=== PATIENT | male | born 1950 | race Caucasian/White ===

== ENCOUNTER 2020-01-16 00:05 | Inpatient (IN) | payer MEDICARE, OTHER ==
[2020-01-16] VITALS (9 sets, daily range): BP systolic 146–184; BP diastolic 63–74
[~2020-01-16] VITALS: Ht 177.8 cm; Wt 104.3 kg
[2020-01-16] MEDS ORDERED: TEMAZEPAM 15 MG CAPSULE PO PRN (00:30)
[2020-01-16] MEDS ORDERED: HYDROCODONE/APAP 5/325MG TABLET PO PRN (00:30)
[2020-01-16] MEDS ORDERED: ACETAMINOPHEN 325 MG TABLET PO PRN (00:30)
[2020-01-16] MEDS ORDERED: Z GUARD REMEDY 2 OZ OINT TP PRN (00:30)
[2020-01-16] MEDS ORDERED: MAG HYDROX/AL HYDROX/SIMETH 30 ML UDC PO PRN (00:30)
[2020-01-16] MEDS ORDERED: MECLIZINE HCL 12.5 MG TABLET PO PRN (00:30)
[2020-01-16] MEDS ORDERED: ONDANSETRON HCL/PF 4 MG/2 ML VIAL IVP PRN (00:30)
[2020-01-16] MEDS ORDERED: MAGNESIUM HYDROXIDE 30 ML UDC PO PRN (00:30)
[2020-01-16] MEDS ORDERED: APIX5TAB PO (00:51)
[2020-01-16] MEDS ORDERED: HYDR100T27 PO (00:51)
[2020-01-16] MEDS ORDERED: DULA0.75 SQ (00:51)
[2020-01-16] MEDS ORDERED: NIFE-57 PO (00:51)
[2020-01-16] MEDS ORDERED: ISOS30TA6 PO (00:51)
[2020-01-16] MEDS ORDERED: LABE200T5 PO (00:51)
--- NOTE | 2020-01-16 01:18 | NUR ---
ADMISSION NOTES: RECEIVED REPORT FROM GEREMIAS FROM [facility] AT 2200. PT BROUGHT TO THE UNIT VIA GURNEY ACCOMPANIED BY EMT, ARRIVED AT 0012AM. PT TRANSFERRED TO BED, TELEMONITORING APPLIED. PT A/O X3 ON RA RESPIRATIONS EVEN AND UNLABORED. IV ACCESS PATENT AND FLUSHING WELL, ON HL. SKIN ASSESSMENT PERFORMED. ORIENTED PT TO UNIT POLICY AND HOURLY ROUNDING, USE OF CALL LIGHT SYSTEM. INVENTORY OF BELONGING PERFORMED BY MAHESH MCKEON. CLARIFIED WITH PT REGARDING ALL HOME MEDS, ENTERED IN COMPUTER, EPIC HOSPITALIST CURRENTLY IN THE UNIT ALREADY PLACED ALL ORDERS. INFORMED MD THAT HOME MEDS WILL BE ENTERED, PER MD TO JUST NOTIFY HIM. PT PROVIDED WITH SNACKS/SAND WHICH AND CRANBERRY JUICE. ALL PAPER WORKS FROM PLACED IN CHART. MRSA SWAB PERFORMED. NSR HR 74. PT DENIES ANY PALPITATION OR DIZZINESS. VS TAKEN AND RECORDED. LEFT UPPER ARM AVF IN PLACED, PRECAUTION POSTED BY THE WALL. SAFETY PRECAUTIONS FOR FALL INITIATED, Call light in reach, will continue monitoring pt.
--- NOTE | 2020-01-16 01:23 | NUR ---
rn notes: notified epic md about all home meds already saved in computer.
[2020-01-16] MEDS ORDERED: DEXTROSE 50%-WATER 50 ML DISP.SYRIN IV PRN (02:30)
[2020-01-16] MEDS: BLOOD SUGAR DIAGNOSTIC 1 EACH STRIP IN SCH ×4 (06:18→21:11)
[2020-01-16] MEDS: INSULIN REGULAR, HUMAN 100 UNIT/ML 3 ML VIAL SQ PRN ×4 (06:25→21:11)
--- NOTE | 2020-01-16 07:02 | NUR ---
end of shift report: pt remains on tele monitoring, sinus rhythm hr 70's. denies any chest pain or palpitation, denies any dizziness or light headedness. iv access remains patent and flushing well, on hl, no s/s of iv infiltration noted. plan of care: cardio consult in am. safety precautions for fall remains engaged, call light in reach, will endorse to day rn for violeta.
--- NOTE | 2020-01-16 07:38 | NUR ---
ROLL UP MACHINE OPERATOR OPENING NOTES BEDSIDE ENDORSEMENT DONE. PATIENT IS IN BED, AWAKE AND VERBALLY RESPONSIVE. A/O X4, ABLE TO MAKE NEEDS KNOWN. BREATHING EVEN AND UNLABORED, TOLERATING ROOM AIR. ON TELE MONITORING, READING OF SR W/ PAC, HR AT MID 70'S, NO CARDIAC DISTRESS. IV LINE ON RAC #20 INTACT AND PATENT. NICK AV SHUNT, W/ DRESSING C/D/I. SAFETY PRECAUTIONS IN PLACE: BED LOCKED AND ON LOWEST POSITION, SR UP X2, CALL LIGHT W/IN REACH. WILL MONITOR ACCORDINGLY. Addendum: 01/16/20 at 0746 by ARTHUR PEREZ RN NO PAC NOTED ON TELE MONITORING.
[2020-01-16] MEDS: APIXABAN 5 MG TABLET PO SCH ×2 (08:14→17:15)
[2020-01-16] MEDS: PANTOPRAZOLE 40 MG TABLET.DR PO SCH (08:14)
[2020-01-16] MEDS: LABETALOL HCL (100MG) 100 MG TABLET PO SCH ×2 (08:15→21:01)
[2020-01-16] MEDS: hydrALAZINE HCL 50 MG TABLET PO SCH ×3 (08:15→17:13)
[2020-01-16] MEDS: ISOSORBIDE DINITRATE (20MG) 20 MG TABLET PO SCH ×3 (08:16→17:13)
[2020-01-16] MEDS: NIFEdipine XL (30MG) 30 MG TAB PO SCH ×2 (08:16→17:11)
--- NOTE | 2020-01-16 09:59 | NUR ---
RN NOTES PATIENT WAS SEEN BY DR. BUENROSTRO FOR CARDIO CONSULT, W/ ORDER FOR CT ANGIO HEART W/ 3D IMAGE. CONSENT FORM SIGNED BY PATIENT AND WITNESSED BY ME. RADIOLOGY MADE AWARE THAT PATIENT HAD TAKEN HIS BP MEDS AND ELIQUIS IN AM.
[2020-01-16 10:22] LABS: BASOPHILS # (AUTO) 0.1 /CMM (0.0-0.2); BASOPHILS % (AUTO) 1.3 % (0.0-2.0); EOSINOPHILS % (AUTO) 9.8 % (0.0-6.0); HEMATOCRIT 33 % (39-51); HEMOGLOBIN 10.9 g/dL (13.5-17.5); LYMPHOCYTES # (AUTO) 0.7 /CMM (0.8-4.8); LYMPHOCYTES % (AUTO) 8.2 % (20.0-44.0); MEAN CORPUSCULAR HGB CONC 33 g/dl (31.0-36.0); MEAN CORPUSCULAR VOLUME 90 fL (80-96); MONOCYTES # (AUTO) 0.7 /CMM (0.1-1.30); MONOCYTES % (AUTO) 8.8 % (2.0-12.0); NEUTROPHILS # (AUTO) 6.1 /CMM (1.8-8.9); NEUTROPHILS % (AUTO) 71.9 % (43.0-81.0); PLATELET COUNT (AUTO) 205 /CMM (150-450); RED BLOOD CELL COUNT(AUTO) 3.65 MIL/uL (4.5-6.0); WHITE BLOOD COUNT (AUTO) 8.4 K/uL (4.3-11.0)
[2020-01-16 10:49] LABS: BILIRUBIN,TOTAL 0.4 mg/dL (0.2-1.0); CALCIUM, SERUM 8.3 mg/dL (8.5-10.1); CREATININE 6.7 mg/dL (0.6-1.3); MAGNESIUM 1.9 mg/dL (1.8-2.4); PHOSPHORUS 4.7 mg/dL (2.5-4.9); POTASSIUM 3.8 mmol/L (3.5-5.1); TOTAL PROTEIN, SERUM 7.3 g/dL (6.4-8.2)
[2020-01-16] MEDS ORDERED: NITROGLYCERIN 0.4 MG/TAB BOTTLE SL ONE (12:30)
[2020-01-16] MEDS ORDERED: IV NS 0.9% 500 ML IV PRN (12:30)
--- NOTE | 2020-01-16 12:38 | NUR ---
RN ORTIZ MACEDO FROM LEASING MACHINE TENDER CALLED AND WAS INFORMED ABOUT PATIENT'S CREATININE LEVEL OF 6.[address] BUENROSTRO IS OKAY TO CONTINUE WITH THE CTA PROCEDURE. SPOKE W/ DR. BUENROSTRO AND INFORMED HIM OF CONCERN; OKAY TO CONTINUE PER DR. BUENROSTRO. CALLED [facility] BACK AND INFORMED OF DR. BUENROSTRO'S RESPONSE.
[2020-01-16] MEDS ORDERED: METOPROLOL TARTRATE INJ 5 MG/5 ML AMPUL ONE ×2 (12:42→13:38)
[2020-01-16] MEDS ORDERED: NITROGLYCERIN 0.4 MG/TAB BOTTLE ONE (12:42)
--- NOTE | 2020-01-16 13:02 | NUR ---
RN NOTES PATIENT WAS PICKED UP FOR CTA PROCEDURE VIA WHEELCHAIR ACCOMPANIED BY HOUSE PAINTER.
[2020-01-16] MEDS ORDERED: IOHEXOL-350 100 ML VIAL IV ONE (13:04)
[2020-01-16] MEDS ORDERED: IV NS 0.9% 250 ML IV ONE (13:04)
[2020-01-16] MEDS: METOPROLOL TARTRATE INJ 5 MG/5 ML AMPUL IVP PRN ×10 (13:20→14:05)
--- NOTE | 2020-01-16 14:08 | NUR ---
CTA Heart with 3D imaging completed, given a total of 50 MG IVP Metoprolol and 0.4 mg Sl NTG; pt tolerated procedure, VSS; denies pain or SOB ; report given to Ronn JACOBSON; sent back to floor via wheelchair
--- NOTE | 2020-01-16 14:29 | NUR ---
RN NOTES PATIENT RETURNED FROM CTA PROCEDURE VIA WHEELCHAIR, ACCOMPANIED BY MACHINE CLOTH TRIMMER.
--- NOTE | 2020-01-16 18:53 | NUR ---
HOSPITAL SUPERVISOR CLOSING NOTES PATIENT IS IN BED, AWAKE AND VERBALLY RESPONSIVE. A/O X4, ABLE TO MAKE NEEDS KNOWN. BREATHING EVEN AND UNLABORED, TOLERATING ROOM AIR. ON TELE MONITORING, READING OF SR, WITH HR AT MID 60'S TO 70'S, NO CARDIAC DISTRESS. IV LINE ON RAC #20 INTACT AND PATENT. NICK AV SHUNT, W/ DRESSING C/D/I. S/P CTA PROCEDURE TODAY. SAFETY PRECAUTIONS MAINTAINED: BED LOCKED AND ON LOWEST POSITION, SR UP X2, CALL LIGHT W/IN REACH. WILL ENDORSE TO [place] SUPERVISOR RN FOR JASON.
--- NOTE | 2020-01-16 19:31 | NUR ---
PIE TOPPER OPENING NOTES PATIENT RECEIVED RESTING IN BED COMFORTABLY; A/OX4, BREATHING EVEN AND UNLABORED; TOLERATING ROOM AIR; NO SOB NOTED; NO DISTRESS NOTED; CURRENTLY RECEIVING HD WITH HD NURSE AT BEDSIDE; TELE MONITOR READS SR 60 - 70S; R FA # 20 PRESENT; NICK AV SHUNT PRESENT; SAFETY PRECAUTIONS IMPLEMENTED; BED LOCKED IN LOW POSITION; SIDE RAILSX2; CALL LIGHT WITHIN REACH; WILL CONT TO MONITOR
[2020-01-17] VITALS (7 sets, daily range): BP systolic 114–162; BP diastolic 54–68
[2020-01-17] MEDS: BLOOD SUGAR DIAGNOSTIC 1 EACH STRIP IN SCH ×3 (06:30→16:48)
--- NOTE | 2020-01-17 06:33 | NUR ---
PROCESS ARCHITECT CLOSING NOTES PATIENT RESTING IN BED COMFORTABLY; A/OX4, BREATHING EVEN AND UNLABORED; NO SOB NOTED; NO DISTRESS NOTED; PATIENT ABLE TO MAKE NEEDS KNOWN; TELE MONITOR READS SR; NICK AV SHUNT PRESENT; SIMÓN #20 INTACT AND PATNET; ALL NEEDS RENDERED; SAFETY PRECAUTIONS IMPLEMENTED; BED LOCKED IN LOW POSITION; SIDE RAILSX2; CALL LIGHT WITHIN REACH; WILL ENDORSE JASON TO ONCOMING SHIFT
[2020-01-17 06:42] LABS: BASOPHILS # (AUTO) 0.1 /CMM (0.0-0.2); EOSINOPHILS % (AUTO) 8.6 % (0.0-6.0); HEMATOCRIT 34 % (39-51); HEMOGLOBIN 11.2 g/dL (13.5-17.5); LYMPHOCYTES # (AUTO) 0.8 /CMM (0.8-4.8); LYMPHOCYTES % (AUTO) 8.1 % (20.0-44.0); MEAN CORPUSCULAR HGB CONC 34 g/dl (31.0-36.0); MEAN CORPUSCULAR VOLUME 90 fL (80-96); MONOCYTES # (AUTO) 0.8 /CMM (0.1-1.30); MONOCYTES % (AUTO) 8.7 % (2.0-12.0); NEUTROPHILS # (AUTO) 6.9 /CMM (1.8-8.9); NEUTROPHILS % (AUTO) 73.6 % (43.0-81.0); PLATELET COUNT (AUTO) 200 /CMM (150-450); RED BLOOD CELL COUNT(AUTO) 3.73 MIL/uL (4.5-6.0); WHITE BLOOD COUNT (AUTO) 9.4 K/uL (4.3-11.0)
[2020-01-17 07:08] LABS: CHOLESTEROL 133 mg/dL (<200); HDL CHOLESTEROL 48 mg/dL (40-60); LDL 72 mg/dL (0-99); THYROID STIMULATING HORMONE 2.199 uIU/mL (0.358-3.74); TRIGLYCERIDES 94 mg/dL (30-150)
[2020-01-17 07:09] LABS: ALANINE AMINOTRANSFERASE 10 U/L (12-78); ALBUMIN 3.2 g/dL (3.4-5.0); ALKALINE PHOSPHATASE 142 U/L (46-116); ASPARTATE AMINOTRANSFERASE 5 U/L (15-37); BILIRUBIN,TOTAL 0.6 mg/dL (0.2-1.0); CALCIUM, SERUM 8.7 mg/dL (8.5-10.1); CARBON DIOXIDE 28 mmol/L (21-32); CHLORIDE 97 mmol/L (98-107); CREATININE 5.9 mg/dL (0.6-1.3); GLUCOSE 145 mg/dL (74-106); PHOSPHORUS 4.4 mg/dL (2.5-4.9); SODIUM SERUM 134 mmol/L (136-145); TOTAL PROTEIN, SERUM 7.7 g/dL (6.4-8.2); UREA NITROGEN, BLOOD 22 mg/dL (7-18)
--- NOTE | 2020-01-17 07:30 | NUR ---
PARENTING SKILLS INSTRUCTOR NOTES RECEIVED PT ON BED, AAOX4, ABLE TO MAKE NEEDS KNOWN. RESPIRATION EVEN AND UNLABORED WITH NO ACUTE RESPIRATORY DISTRESS, ON RA. LAST HD 01/15, ABLE TO PEE PER PT BUT LITTLE. DENIES PAIN AND DISCOMFORT. SKIN WARM TO TOUCH AND DRY. IV SITE AT RIGHT AC #20, PATENT IN FLUSHING. TELE MONITOR SHOWS SR 70 WITH EPISODES OF PAC. CALL LIGHT WITHIN REACH, BED IN LOW LOCKED POSITION, SR X2 UP FOR SAFETY. WILL CONT TO MONITOR CARE.
[2020-01-17] MEDS: PANTOPRAZOLE 40 MG TABLET.DR PO SCH (07:44)
--- NOTE | 2020-01-17 08:33 | NUR ---
DESK LIEUTENANT NOTES BP CHECKED 125/59 AT RIGHT UPPER ARM, HR 69.
[2020-01-17] MEDS: LABETALOL HCL (100MG) 100 MG TABLET PO SCH (08:34)
[2020-01-17] MEDS: ISOSORBIDE DINITRATE (20MG) 20 MG TABLET PO SCH ×3 (08:34→16:38)
[2020-01-17] MEDS: NIFEdipine XL (30MG) 30 MG TAB PO SCH ×2 (08:34→16:39)
[2020-01-17] MEDS: hydrALAZINE HCL 50 MG TABLET PO SCH ×3 (08:34→16:40)
[2020-01-17] MEDS: APIXABAN 5 MG TABLET PO SCH ×2 (08:35→16:41)
[2020-01-17] MEDS: INSULIN REGULAR, HUMAN 100 UNIT/ML 3 ML VIAL SQ PRN ×2 (12:12→16:49)
--- NOTE | 2020-01-17 18:58 | NUR ---
REHABILITATION CASE COORDINATORSTATIONARY ENGINEER NOTES PT AAOX4, ABLE TO MAKE NEEDS KNOWN. DC TO HOME IN MEDICAL CONDITION. EXIT CARE PROVIDED, UNDERSTOOD WELL. PT WITH NO PRESENCE OF ACUTE RESPIRATORY DISTRESS, TOLERATING RA WITH NO SOB. BM TODAY. DIALYSIS DONE TODAY WITH 1500 ML OUT. TELE SHOWS SINUS RHYTHM ALL DAY. PT DENIES LIGHTHEADEDNESS, AND PALPITATION. ALL CONCERNS ATTENDED. PT DC TO HOME SAFELY IN STABLE CONDITION
== END 2020-01-17 19:00 | disposition home or self-care (01) | DRG 308 ==
LOC: TELE 00:05 → MED 01-17 09:25
PROVIDERS: ATTEND Nurse Practitioner Acute Care
PROC: 5A1D70Z Performance of Urinary Filtration, Intermittent, Less than 6 Hours Per Day (ICD-10-PCS; principal; 2020-01-17)
DX: I48.91 Unspecified atrial fibrillation (principal); N18.6 End stage renal disease; I12.0 Hypertensive chronic kidney disease with stage 5 chronic kidney disease or end stage renal disease; I25.10 Atherosclerotic heart disease of native coronary artery without angina pectoris; Z95.5 Presence of coronary angioplasty implant and graft; Z99.2 Dependence on renal dialysis; E78.5 Hyperlipidemia, unspecified; E11.22 Type 2 diabetes mellitus with diabetic chronic kidney disease; N25.0 Renal osteodystrophy; D64.9 Anemia, unspecified
CPT/HCPCS: 36415; 71045-TC; 75574; 80053-TC; 80061-TC; 82962-TC; 83735-TC; 84100-TC; 84443-TC; 84484-TC; 85025-TC; 87081-TC; 90935-TC; 93307-TC; 97116-TC; 97530-TC; A6403; G0378; J1815; J3490; J7050; Q9967

== ENCOUNTER 2020-05-27 19:03 | Inpatient (IN) | payer MEDICARE, OTHER ==
[~2020-05-27] VITALS: Ht 177.8 cm; Wt 108.9 kg
[~2020-05-27 19:03] MED LIST: APIX5TAB PO; DULA0.75 SQ; HYDR100T27 PO; ISOS30TA86 PO; LABE200T5 PO; NIFE-57 PO
--- NOTE | 2020-05-27 19:10 | NUR ---
pt bibself c/o worsening sob x1 day. Pt aaox4. Pt breathing evenly and unlabored. Pt states that he missed dialysis today because he needed to get a tooth extracted, but was unable to do so. Pt has dialysis TThS. Pt has dialysis access on his left arm. SKin is warm, dry, and intact. Pt has 20g iv in rt hand. Blood obtained and covid swab sent to lab. Pt attached to court recording monitor and pox. [place] given and call light within reach.
--- NOTE | 2020-05-27 19:10 | NUR ---
Note undone in EDM - 05/27/20 at 1958 by SCOTTY pt bibself c/o worsening sob x1 day. Pt aaox4. Pt breathing evenly and unlabored. Pt states that he missed dialysis today because he needed to get a tooth extracted, but was unable to do so. Pt has dialysis TThS. Pt has dialysis access on his left arm. SKin is warm, dry, and intact. Pt has 20g iv in rt hand. Blood obtained and covid swab sent to lab. Pt attached to front desk monitor. [place] given and call light within reach.
--- NOTE | 2020-05-27 19:46 | NUR ---
ALFREDA CROWLEY TALKING TO PATTY SANCHES DNP REGARDING PT ADMISSION.
[2020-05-27 19:55] LABS: BASOPHILS # (AUTO) 0.1 /CMM (0.0-0.2); BASOPHILS % (AUTO) 0.9 % (0.0-2.0); EOSINOPHILS % (AUTO) 4.1 % (0.0-6.0); HEMATOCRIT 27 % (39-51); HEMOGLOBIN 8.9 g/dL (13.5-17.5); LYMPHOCYTES # (AUTO) 0.6 /CMM (0.8-4.8); LYMPHOCYTES % (AUTO) 6.7 % (20.0-44.0); MEAN CORPUSCULAR HGB CONC 33 g/dl (31.0-36.0); MEAN CORPUSCULAR VOLUME 90 fL (80-96); MONOCYTES # (AUTO) 0.5 /CMM (0.1-1.30); MONOCYTES % (AUTO) 5.8 % (2.0-12.0); NEUTROPHILS # (AUTO) 7.8 /CMM (1.8-8.9); NEUTROPHILS % (AUTO) 82.5 % (43.0-81.0); PLATELET COUNT (AUTO) 195 /CMM (150-450); RED BLOOD CELL COUNT(AUTO) 2.98 MIL/uL (4.5-6.0); WHITE BLOOD COUNT (AUTO) 9.4 K/uL (4.3-11.0)
[2020-05-27 20:15] LABS: ALANINE AMINOTRANSFERASE 19 U/L (12-78); ALBUMIN 3.5 g/dL (3.4-5.0); ALKALINE PHOSPHATASE 117 U/L (46-116); ASPARTATE AMINOTRANSFERASE 11 U/L (15-37); B-TYPE NATRIURETIC PEPTIDE 33567 PG/ML (0-125); BILIRUBIN,DIRECT 0.1 mg/dL (0.0-0.2); BILIRUBIN,TOTAL 0.3 mg/dL (0.2-1.0); CALCIUM, SERUM 9.4 mg/dL (8.5-10.1); CARBON DIOXIDE 28 mmol/L (21-32); CHLORIDE 98 mmol/L (98-107); GLUCOSE 154 mg/dL (74-106); POTASSIUM 5.4 mmol/L (3.5-5.1); SODIUM SERUM 136 mmol/L (136-145); TOTAL PROTEIN, SERUM 7.6 g/dL (6.4-8.2); UREA NITROGEN, BLOOD 55 mg/dL (7-18)
[2020-05-27 20:16] LABS: CREATININE 8.7 mg/dL (0.6-1.3)
--- NOTE | 2020-05-27 21:35 | NUR ---
TELE [phone]
--- NOTE | 2020-05-27 21:49 | NUR ---
REPORT CALLED TO STRAND AND BINDER CONTROLLER MYRA. WILL TRANSPORT PT VIA ACLS PROTOCOL.
[2020-05-27 22:15] VITALS: BP 130/71
--- NOTE | 2020-05-27 22:15 | NUR ---
RN NOTES PT RECEIVED VIA GURNEY PT WAS ABLE TO STAND UP AND WALK TO BED WITHOUT ASSISTANCE PT HAS A STEADY GAIT. PT IS ALERT AND ORIENTED X4. PT REPORTS NO RESPIRATORY DISTRESS OR PAIN AT THIS MOMENT. PT IS ON ROOM AIR TOLERATING WELL. PT PLACED ON TELE MONITOR. PT UPPER BODY SKIN INTACT REFUSED TO LET NURSE AND ASSESS HIS LOWER BODY PT STATE " I DON'T HAVE ANY WOUNDS OR BRUISES ITS FINE YOU DON'T NEED TO CHECK" RISK AND BENEFITS EXPLAINED X3 REFUSED X 3 PT HAS IV ACCESS ON THE RIGHT HAND 20 G INTACT FLUSHING WELL SALINE LOCKED. PT HAS DIALYSIS ACCESS ON THE LEFT UPPER ARM. NO SWELLING REDNESS OR PAIN AT SITE.PT ORIENTED TO ROOM AND UNIT. CALL LIGHT WITHIN REACT. SAFETY PRECAUTIONS FOLLOWED. ALL NURSING NEEDS ATTENDED TO WILL CONTINUE TO MONITOR.
[2020-05-27] MEDS ORDERED: MAGNESIUM HYDROXIDE 30 ML UDC PO PRN (23:30)
[2020-05-27] MEDS ORDERED: ZOLPIDEM TARTRATE 5 MG TABLET PO PRN (23:30)
[2020-05-27] MEDS ORDERED: Z GUARD REMEDY 2 OZ OINT TP PRN (23:30)
[2020-05-27] MEDS ORDERED: ONDANSETRON HCL/PF 4 MG/2 ML VIAL IVP PRN (23:30)
[2020-05-27] MEDS ORDERED: DEXTROSE 50%-WATER 50 ML DISP.SYRIN IV PRN (23:30)
[2020-05-27] MEDS: APIXABAN 5 MG TABLET PO SCH (23:32)
[2020-05-27] MEDS: LABETALOL HCL (100MG) 100 MG TABLET PO SCH (23:32)
[2020-05-27] MEDS: BLOOD SUGAR DIAGNOSTIC 1 EACH STRIP IN SCH (23:42)
[2020-05-27] MEDS: ACETAMINOPHEN 325 MG TABLET PO PRN (23:44)
[2020-05-28] VITALS: BP 130/71
--- NOTE | 2020-05-28 | NUR ---
RN NOTES PT REQUESTED TYLENOL STATED " I TAKE TYLENOL ALL THE TIME AT HOME" TYLENOL GIVEN NO ADVERSE REACTIONS NOTED NOR REPORTED. WILL CONTINUE TO MONITOR.
[2020-05-28 03:08] LABS: BASOPHILS % (AUTO) 0.5 % (0.0-2.0); EOSINOPHILS % (AUTO) 4.5 % (0.0-6.0); HEMATOCRIT 28 % (39-51); HEMOGLOBIN 9.4 g/dL (13.5-17.5); LYMPHOCYTES # (AUTO) 0.6 /CMM (0.8-4.8); LYMPHOCYTES % (AUTO) 7.9 % (20.0-44.0); MEAN CORPUSCULAR HGB CONC 34 g/dl (31.0-36.0); MEAN CORPUSCULAR VOLUME 89 fL (80-96); MONOCYTES # (AUTO) 0.5 /CMM (0.1-1.30); MONOCYTES % (AUTO) 6.6 % (2.0-12.0); NEUTROPHILS # (AUTO) 6.6 /CMM (1.8-8.9); NEUTROPHILS % (AUTO) 80.5 % (43.0-81.0); PLATELET COUNT (AUTO) 195 /CMM (150-450); RED BLOOD CELL COUNT(AUTO) 3.14 MIL/uL (4.5-6.0); WHITE BLOOD COUNT (AUTO) 8.2 K/uL (4.3-11.0)
[2020-05-28 03:21] LABS: CALCIUM, SERUM 9.5 mg/dL (8.5-10.1); MAGNESIUM 2.3 mg/dL (1.8-2.4); PHOSPHORUS 7.3 mg/dL (2.5-4.9); POTASSIUM 5.8 mmol/L (3.5-5.1)
[2020-05-28 03:23] LABS: CREATININE 9.1 mg/dL (0.6-1.3)
[2020-05-28 04:40] VITALS: BP 123/61
--- NOTE | 2020-05-28 06:51 | NUR ---
RN NOTES PT ASLEEP IN BED EASILY WOKEN UP. NO RESPIRATORY DISTRESS NOTED OR REPORTED NO PAIN OR DISCOMFORT NOTED OR REPORTED.ALL NURSING NEEDS MET AT THIS TIME. CALL LIGHT WITHIN REACH.SAFETY MEASURES FOLLOWED. CALL LIGHT WITHIN REACH WILL ENDORSE CARE TO DAY SHIFT NURSE.
[2020-05-28] MEDS: BLOOD SUGAR DIAGNOSTIC 1 EACH STRIP IN SCH ×4 (07:25→23:04)
--- NOTE | 2020-05-28 07:43 | NUR ---
MS RN OPENING NOTE PT RECEIVED IN BED, RESTING COMFORTABLY WITH NO S/SX OF ACUTE DISTRESS. PT IS A.O X 4, VERBAL, ABLE TO MAKE NEEDS KNOWN AND HAS NO C/O PAIN AT THIS TIME. PT IS ON ROOM AIR WITH NO S/SX OF RESPIRATORY DISTRESS OR SOB NOTED. TELE MONITOR SHOWS NSR AROUND 60-61 BPM WITH NO S/SX CARDIAC DISTRESS AT THIS TIME. PT IS AMBULATORY WITH STEADY GAIT. PT HAS AN IV ACCESS ON THE RIGHT HAND G#20, PATENT, INTACT AND FLUSHING WELL WITH NO S/SX OF INFILTRATION, IRRITATION OR INFECTION. PT HAS AN AV FISTULA ON THE LEFT UPPER ARM, POSITIVE FOR BRUIT AND THRILL. SAFETY MEASURES IN PLACE: BED IN LOWEST POSITION AND LOCKED WITH BOTH UPPER SIDE RAILS UP X 2. CALL LIGHT PLACED WITHIN REACH. WILL CONTINUE TO MONITOR.
[2020-05-28 08:29] VITALS: BP 124/77
[2020-05-28] MEDS: hydrALAZINE HCL 50 MG TABLET PO SCH ×3 (09:02→16:12)
[2020-05-28] MEDS: NIFEdipine XL (30MG) 30 MG TAB PO SCH (09:03)
[2020-05-28] MEDS: APIXABAN 5 MG TABLET PO SCH ×2 (09:03→16:16)
[2020-05-28] MEDS: LABETALOL HCL (100MG) 100 MG TABLET PO SCH ×2 (09:04→21:00)
[2020-05-28] MEDS: ACETAMINOPHEN 325 MG TABLET PO PRN ×2 (09:17→16:14)
--- NOTE | 2020-05-28 09:19 | NUR ---
MS RN NOTE PT C/O DULL CHEST PAIN RATED 3/10. ACETAMINOPHEN 650MG PO Q6H PRN GIVEN PER PT'S REQUEST. WILL CONTINUE TO MONITOR.
[2020-05-28] MEDS: ISOSORBIDE DINITRATE (20MG) 20 MG TABLET PO SCH ×3 (09:24→16:13)
[2020-05-28] MEDS: INSULIN REGULAR, HUMAN 100 UNIT/ML 3 ML VIAL SQ PRN ×2 (11:26→16:55)
[2020-05-28 14:20] VITALS: BP 144/62
[2020-05-28 15:51] VITALS: BP 151/64
--- NOTE | 2020-05-28 16:17 | NUR ---
MS RN NOTE PT C/O DULL CHEST PAIN RATED 3/10. ACETAMINOPHEN 650MG PO Q6H PRN ADMINISTERED PER PT'S REQUEST. WILL CONTINUE TO MONITOR.
--- NOTE | 2020-05-28 18:48 | NUR ---
MS RN CLOSING NOTE PT REMAINS IN BED, RESTING COMFORTABLY WITH NO S/SX OF ACUTE DISTRESS. PT IS A/O X 4, VERBAL, ABLE TO MAKE NEEDS KNOWN AND HAS NO C/O PAIN AT THIS TIME. PT IS ON ROOM AIR WITH NO S/SX OF RESPIRATORY DISTRESS OR SOB NOTED. TELE MONITOR SHOWS NSR AROUND 60-70 BPM WITH NO S/SX CARDIAC DISTRESS AT THIS TIME. PT IS AMBULATORY WITH STEADY GAIT. PT HAS AN IV ACCESS ON THE RIGHT HAND G#20, PATENT, INTACT AND FLUSHING WELL WITH NO S/SX OF INFILTRATION, IRRITATION OR INFECTION. PT HAS AN AV FISTULA ON THE LEFT UPPER ARM, POSITIVE FOR BRUIT AND THRILL. PT SCHEDULED FOR HEMODIALYSIS TONIGHT. SAFETY MEASURES MAINTAINED: BED IN LOWEST, LOCKED POSITION WITH BOTH UPPER SIDE RAILS UP X 2. CALL LIGHT PLACED WITHIN REACH. WILL ENDORSE TO BODY REPAIRER NURSE.
--- NOTE | 2020-05-28 19:30 | NUR ---
TELE/RN OPENING NOTES RECEIVED PATIENT IN BED RESTING. PATIENT IS ALERT AND ORIENTED X 4. PATIENT BREATHING IS EVEN AND UNLABORED. NO SIGNS OF SOB OR RESPIRATORY DISTRESS NOTED. PATIENT STATES NO PAIN AT THIS TIME. PATIENT HAS IV ACCESS ON RIGHT HAND INTACT AND NICK AV FISTULA. PATIENT TO RECEIVE HD TONIGHT. SAFETY MEASURES ARE IN PLACE, BED IS LOCKED AND PLACED IN THE LOW POSITION, SIDE RAILS UP X 2, CALL LIGHT IS WITHIN REACH. WILL CONTINUE TO MONITOR THROUGH OUT SHIFT.
[2020-05-28 20:00] VITALS: BP 140/58
--- NOTE | 2020-05-28 21:00 | NUR ---
TELE/RN NOTES PATIENT CURRENTLY RECEIVING HD. PO MEDS HELD. PATIENT TOLERATING WELL. WILL CONTINUE TO MONITOR.
[2020-05-29] VITALS: BP 155/71
[2020-05-29 04:00] VITALS: BP_SYST 163; BP_SYST 173; BP_DIAS 59
--- NOTE | 2020-05-29 06:50 | NUR ---
TELE/RN CLOSING NOTES PATIENT IN BED RESTING. PATIENT IS ALERT AND ORIENTED X 4. PATIENT BREATHING IS EVEN AND UNLABORED. NO SIGNS OF SOB OR RESPIRATORY DISTRESS NOTED. PATIENT STATES NO PAIN AT THIS TIME. PATIENT HAS IV ACCESS ON RIGHT HAND INTACT AND NICK AV FISTULA. PATIENT TO RECEIVE HD 3.7 ML REMOVED. SAFETY MEASURES ARE IN PLACE, BED IS LOCKED AND PLACED IN THE LOW POSITION, SIDE RAILS UP X 2, CALL LIGHT IS WITHIN REACH. WILL ENDORSE CARE TO DAY SHIFT NURSE.
[2020-05-29 07:08] LABS: BASOPHILS # (AUTO) 0.1 /CMM (0.0-0.2); BASOPHILS % (AUTO) 1.3 % (0.0-2.0); EOSINOPHILS % (AUTO) 4.9 % (0.0-6.0); HEMATOCRIT 27 % (39-51); HEMOGLOBIN 9.2 g/dL (13.5-17.5); LYMPHOCYTES # (AUTO) 0.6 /CMM (0.8-4.8); LYMPHOCYTES % (AUTO) 7.3 % (20.0-44.0); MEAN CORPUSCULAR HGB CONC 34 g/dl (31.0-36.0); MEAN CORPUSCULAR VOLUME 89 fL (80-96); MONOCYTES # (AUTO) 0.5 /CMM (0.1-1.30); MONOCYTES % (AUTO) 6.7 % (2.0-12.0); NEUTROPHILS # (AUTO) 6.3 /CMM (1.8-8.9); NEUTROPHILS % (AUTO) 79.8 % (43.0-81.0); PLATELET COUNT (AUTO) 198 /CMM (150-450); RED BLOOD CELL COUNT(AUTO) 3.06 MIL/uL (4.5-6.0); WHITE BLOOD COUNT (AUTO) 7.8 K/uL (4.3-11.0)
[2020-05-29 07:15] LABS: CALCIUM, SERUM 9.7 mg/dL (8.5-10.1); CREATININE 6.9 mg/dL (0.6-1.3); POTASSIUM 4.5 mmol/L (3.5-5.1)
[2020-05-29] MEDS: BLOOD SUGAR DIAGNOSTIC 1 EACH STRIP IN SCH ×2 (07:46→11:47)
--- NOTE | 2020-05-29 07:51 | NUR ---
TELE/RN OPENING NOTES RECEIVED PATIENT ON BED AWAKE ALERT AND ORIENTED X4. PATIENT IS ON ROOM AIR SATURATING WELL. PATIENT IN NO APPARENT RESPIRATORY DISTRESS NOTED. NO COMPLAINED OF PAIN NOTED AT THIS TIME. TELE MONITOR READING SINUS RHYTHM 88 BPM. WILL CONTINUE TO MONITOR.
[2020-05-29 08:00] VITALS: BP 167/77
[2020-05-29] MEDS: LABETALOL HCL (100MG) 100 MG TABLET PO SCH (08:32)
[2020-05-29] MEDS: NIFEdipine XL (30MG) 30 MG TAB PO SCH (08:33)
[2020-05-29] MEDS: ISOSORBIDE DINITRATE (20MG) 20 MG TABLET PO SCH ×2 (08:33→13:59)
[2020-05-29] MEDS: hydrALAZINE HCL 50 MG TABLET PO SCH ×2 (08:33→13:58)
[2020-05-29] MEDS: APIXABAN 5 MG TABLET PO SCH (08:38)
--- NOTE | 2020-05-29 09:32 | NUR ---
RN NOTES PATIENT IS OKAY FOR DISCHARGE HOME PER DR. BUENROSTRO NOTED AND CARRIED OUT.
[2020-05-29 13:59] VITALS: BP 163/74
--- NOTE | 2020-05-29 14:52 | NUR ---
RN NOTES PATIENT IS ALERT AND ORIENTEDX4. PATIENT IN ROOM AIR SATURATION 92%. PATIENT IN NO APPARENT RESPIRATORY DISTRESS NOTED. NO COMPLAINED OF PAIN NOTED AT THIS TIME. SEEN AND EXAMINED BY MD WITH ORDERS MADE AND AND CARRIED OUT. ALL DUE MEDICATIONS WAS GIVEN. HEMODIALYSIS WAS DONE TODAY OUTPUT 3L. PATIENT WAS GIVEN DISCHARGED INSTRUCTIONS, PATIENT VERBALIZED UNDERSTANDING. BLOOD PRESSURE 163/74 P 78 HYDRALAZINE 100 MG 2 TAB PO AND ISORDIL 40 MG 2 TABS WAS GIVEN. PATIENT REFUSED TO WAIT FOR BLOOD PRESSURE CHECKED EXPLAINED THE RISK AND BENEFITS PATIENT VERBALIZED HE CANNOT WAIT. PATIENT LEFT THE HOSPITAL IN MEDICALLY STABLE CONDITION AT 1423, AMBULATORY AND BY HIMSELF.
== END 2020-05-29 14:26 | disposition home or self-care (01) | DRG 291 ==
LOC: ER 19:05 → TELE 21:54 → MED 05-29 08:18
PROVIDERS: ADMIT Nurse Practitioner Acute Care; ATTEND Family Medicine
PROC: 5A1D70Z Performance of Urinary Filtration, Intermittent, Less than 6 Hours Per Day (ICD-10-PCS; principal; 2020-05-28)
DX: I13.2 Hypertensive heart and chronic kidney disease with heart failure and with stage 5 chronic kidney disease, or end stage renal disease (principal); I50.33 Acute on chronic diastolic (congestive) heart failure; N18.6 End stage renal disease; D68.59 Other primary thrombophilia; E11.22 Type 2 diabetes mellitus with diabetic chronic kidney disease; E87.5 Hyperkalemia; I25.10 Atherosclerotic heart disease of native coronary artery without angina pectoris; Z99.2 Dependence on renal dialysis; Z88.5 Allergy status to narcotic agent; Z88.6 Allergy status to analgesic agent; Z91.012 Allergy to eggs; Z90.79 Acquired absence of other genital organ(s); Z79.899 Other long term (current) drug therapy; E78.5 Hyperlipidemia, unspecified; E11.65 Type 2 diabetes mellitus with hyperglycemia; E66.01 Morbid (severe) obesity due to excess calories; I48.91 Unspecified atrial fibrillation; D63.1 Anemia in chronic kidney disease; Z95.5 Presence of coronary angioplasty implant and graft; Z79.01 Long term (current) use of anticoagulants; N25.0 Renal osteodystrophy; Z74.09 Other reduced mobility; E88.9 Metabolic disorder, unspecified; Z68.34 Body mass index [BMI] 34.0-34.9, adult; Z20.822 Contact with and (suspected) exposure to COVID-19
CPT/HCPCS: 36415; 71045-TC; 80048-TC; 80061-TC; 80076-TC; 82962-TC; 83735-TC; 83880; 84100-TC; 84484-TC; 85025-TC; 85730-TC; 86706; 87081-TC; 87340; 90935-TC; 93970-TC; A6403; C9803; G0378; J1815

== ENCOUNTER 2021-03-03 16:55 | Emergency (ER) | payer MEDICARE, MEDICAID ==
[~2021-03-03] VITALS: Ht 177.8 cm; Wt 96.8 kg
--- NOTE | 2021-03-03 17:14 | NUR ---
BIBS FOR C/O UPPER ABDOMINAL PRESSURE LIKE PAIN 10/26 X1 WEEK WHICH STARTES DURING LAST HOUR OF DIALYSIS SESSION, DENIES N/V. DENIES CP. IN ROOM AIR AND DENIES SOB. RESPIRATION REGULAR AND UNLABORED. LAST DIALYSIS TODAY. NOTED LEFT UPPER ARM AV SHUNT. ABDOMEN SOFT AND NON-DISTENDED. WILL CONTINUE TO MONITOR THE PATIENT.
--- NOTE | 2021-03-03 17:17 | NUR ---
PT TAKEN TO CT
--- NOTE | 2021-03-03 17:49 | NUR ---
PT AMBULATED TO RESTROOM
--- NOTE | 2021-03-03 17:55 | NUR ---
URINE SAMPLE OBTAINED AND SENT TO LAB
[2021-03-03 18:05] LABS: BASOPHILS # (AUTO) 0.1 K/uL (0.0-0.2); BASOPHILS % (AUTO) 1.2 % (0.0-2.0); EOSINOPHILS % (AUTO) 2.9 % (0.0-6.0); HEMATOCRIT 37 % (39-51); HEMOGLOBIN 12.3 g/dL (13.5-17.5); LYMPHOCYTES # (AUTO) 0.5 K/uL (0.8-4.8); LYMPHOCYTES % (AUTO) 5.9 % (20.0-44.0); MEAN CORPUSCULAR HGB CONC 33 g/dl (31.0-36.0); MEAN CORPUSCULAR VOLUME 91 fL (80-96); MONOCYTES # (AUTO) 0.7 K/uL (0.1-1.30); MONOCYTES % (AUTO) 9.2 % (2.0-12.0); NEUTROPHILS # (AUTO) 6.4 K/uL (1.8-8.9); NEUTROPHILS % (AUTO) 80.8 % (43.0-81.0); PLATELET COUNT (AUTO) 161 K/uL (150-450); RED BLOOD CELL COUNT(AUTO) 4.09 MIL/uL (4.5-6.0); WHITE BLOOD COUNT (AUTO) 7.9 K/uL (4.3-11.0)
[2021-03-03 18:44] LABS: BILIRUBIN,URINE NEGATIVE (NEGATIVE); COLOR,URINE YELLOW (YELLOW); LEUKOCYTE ESTERASE ,URINE NEGATIVE (NEGATIVE); NITRITE, URINE NEGATIVE (NEGATIVE); PH,URINE 8.5 (5.0-8.0); PROTEIN,URINE >=300 mg/dl (NEGATIVE); UGLUCOSE 500 MG/DL mg/dL (NEGATIVE); UROBILINOGEN,URINE 0.2 EU/dL (0.2)
[2021-03-03 18:52] LABS: BACTERIA,URINE Few /HPF (None Seen); RBC,URINE 0-2 /HPF (0-2); SQUAMOUS EPITHELIAL CELL,UR Few /HPF (None Seen); WBC,URINE 0-2 /HPF (0-3)
[2021-03-03 19:04] LABS: ALANINE AMINOTRANSFERASE 20 U/L (12-78); ALBUMIN 3.8 g/dL (3.4-5.0); ALKALINE PHOSPHATASE 140 U/L (46-116); ASPARTATE AMINOTRANSFERASE 8 U/L (15-37); BILIRUBIN,DIRECT 0.3 mg/dL (0.0-0.2); BILIRUBIN,TOTAL 0.9 mg/dL (0.2-1.0); CALCIUM, SERUM 8.9 mg/dL (8.5-10.1); CARBON DIOXIDE 30 mmol/L (21-32); CHLORIDE 95 mmol/L (98-107); CREATININE 4.4 mg/dL (0.6-1.3); GLUCOSE 122 mg/dL (74-106); LIPASE 138 U/L (73-393); POTASSIUM 3.9 mmol/L (3.5-5.1); SODIUM SERUM 135 mmol/L (136-145); TOTAL PROTEIN, SERUM 8.5 g/dL (6.4-8.2); UREA NITROGEN, BLOOD 21 mg/dL (7-18)
--- NOTE | 2021-03-03 19:51 | NUR ---
Patient discharged to home in stable condition. Written and verbal after care instructions given. Patient verbalizes understanding of instruction.
[2021-03-03 20:49] VITALS: BP 149/79
== END 2021-03-03 20:00 | disposition home or self-care (01) ==
LOC: ER 17:01
DX: R10.13 Epigastric pain (principal); R00.2 Palpitations; Z91.012 Allergy to eggs; Z88.6 Allergy status to analgesic agent
CPT/HCPCS: 36415; 71045-TC; 80048-TC; 80076-TC; 81001; 83690-TC; 84484-TC; 85025-TC

== ENCOUNTER 2021-05-20 02:58 | Emergency (ER) | payer MEDICARE, OTHER ==
[~2021-05-20] VITALS: Ht 177.8 cm; Wt 95.3 kg
[2021-05-20 03:12] VITALS: BP 158/113
--- NOTE | 2021-05-20 03:15 | NUR ---
PT BIBRA C/O LEFT KNEE PAIN S/P FALL. PT AAOX4 BREATHING EVENLY AND UNLABOED. UPON ASSESSMENT, LEFT KNEE SWOLLEN WITH ABRASION ON PATELLA. PT ATTACHED TO MONITOR AND POX. PT GIVEN BLANKET AND CALL LIGHT WITHIN REACH.
[2021-05-20] MEDS ORDERED: ACETAMINOPHEN 325 MG TABLET ONE (03:21)
--- NOTE | 2021-05-20 03:27 | NUR ---
EMT AT BEDSIDE FOR WOUND CARE
[2021-05-20] MEDS ORDERED: ACETAMINOPHEN 325 MG TABLET PO ONE (03:30)
--- NOTE | 2021-05-20 03:32 | NUR ---
XRAY AT BEDSIDE
--- NOTE | 2021-05-20 04:25 | NUR ---
CALLED MISSY TO HAVE IMAGES READ
[2021-05-20] MEDS ORDERED: IBUPROFEN 600 MG TABLET ONE (05:40)
--- NOTE | 2021-05-20 05:45 | NUR ---
Written and verbal after care instructions given. Patient verbalizes understanding of instruction.
[2021-05-20] MEDS ORDERED: IBUPROFEN 600 MG TABLET PO ONE (06:00)
== END 2021-05-20 06:51 | disposition home or self-care (01) ==
LOC: ER 03:08
DX: S83.92XA Sprain of unspecified site of left knee, initial encounter (principal); S81.012A Laceration without foreign body, left knee, initial encounter; I10 Essential (primary) hypertension; E11.9 Type 2 diabetes mellitus without complications; Z87.448 Personal history of other diseases of urinary system; Z85.46 Personal history of malignant neoplasm of prostate; Z98.49 Cataract extraction status, unspecified eye; Z91.012 Allergy to eggs; Z88.5 Allergy status to narcotic agent; Z79.810 Long term (current) use of selective estrogen receptor modulators (SERMs); Z79.899 Other long term (current) drug therapy; W01.0XXA Fall on same level from slipping, tripping and stumbling without subsequent striking against object, initial encounter; Y93.01 Activity, walking, marching and hiking; Y92.89 Other specified places as the place of occurrence of the external cause; Y99.8 Other external cause status
CPT/HCPCS: 73564-TC

== ENCOUNTER 2021-10-10 23:21 | Emergency (ER) | payer MEDICARE, OTHER ==
[~2021-10-10] VITALS: Ht 177.8 cm; Wt 94.8 kg
--- NOTE | 2021-10-11 00:22 | NUR ---
COVID SWAB DONE AND SENT TO LAB
[2021-10-11 00:58] VITALS: BP 145/70
--- NOTE | 2021-10-11 00:58 | NUR ---
Patient discharged to home in stable condition. Written and verbal after care instructions given. Patient verbalizes understanding of instruction.
== END 2021-10-11 00:58 | disposition home or self-care (01) ==
LOC: ER 23:26
DX: J02.8 Acute pharyngitis due to other specified organisms (principal); B97.89 Other viral agents as the cause of diseases classified elsewhere; R09.81 Nasal congestion; Z20.822 Contact with and (suspected) exposure to COVID-19; I10 Essential (primary) hypertension; E11.9 Type 2 diabetes mellitus without complications; Z88.6 Allergy status to analgesic agent; Z91.012 Allergy to eggs; Z79.899 Other long term (current) drug therapy; Z79.01 Long term (current) use of anticoagulants
CPT/HCPCS: C9803

== ENCOUNTER 2021-11-14 14:02 | Emergency (ER) | payer MEDICARE, OTHER ==
[~2021-11-14] VITALS: Ht 177.8 cm; Wt 103.0 kg
--- NOTE | 2021-11-14 14:25 | NUR ---
RECEIVED PT 71 YRAS WESLEY CAME FROM HOME WALKING C/O PALPATION AND SOB PT HEMODILYSIS LAT HD 11/13/21 C/O PALOATIOPN SON DINESES CHEST PAIN
--- NOTE | 2021-11-14 14:30 | NUR ---
SEEN BY DR. BEE
--- NOTE | 2021-11-14 14:40 | NUR ---
INSERTED ANGO CATHTER G 18 ON RT FOR ARM BLOOD DROW AND SENT TO LAB
[2021-11-14 15:46] LABS: BASOPHILS # (AUTO) 0.1 K/uL (0.0-0.2); BASOPHILS % (AUTO) 1.3 % (0.0-2.0); HEMATOCRIT 29 % (39-51); HEMOGLOBIN 9.6 g/dL (13.5-17.5); LYMPHOCYTES # (AUTO) 0.6 K/uL (0.8-4.8); LYMPHOCYTES % (AUTO) 9.3 % (20.0-44.0); MEAN CORPUSCULAR HGB CONC 34 g/dl (31.0-36.0); MEAN CORPUSCULAR VOLUME 92 fL (80-96); MONOCYTES # (AUTO) 0.6 K/uL (0.1-1.30); MONOCYTES % (AUTO) 8.7 % (2.0-12.0); NEUTROPHILS # (AUTO) 4.9 K/uL (1.8-8.9); NEUTROPHILS % (AUTO) 72.7 % (43.0-81.0); PLATELET COUNT (AUTO) 154 K/uL (150-450); WHITE BLOOD COUNT (AUTO) 6.7 K/uL (4.3-11.0)
[2021-11-14 16:02] LABS: CALCIUM, SERUM 7.8 mg/dL (8.5-10.1); CARBON DIOXIDE 27 mmol/L (21-32); CHLORIDE 97 mmol/L (98-107); GLUCOSE 152 mg/dL (74-106); POTASSIUM 4.7 mmol/L (3.5-5.1); SODIUM SERUM 137 mmol/L (136-145)
[2021-11-14 16:04] LABS: CREATININE 9.6 mg/dL (0.6-1.3); UREA NITROGEN, BLOOD 80 mg/dL (7-18)
[2021-11-14 16:07] LABS: ALANINE AMINOTRANSFERASE 16 U/L (12-78); ALBUMIN 3.3 g/dL (3.4-5.0); ALKALINE PHOSPHATASE 152 U/L (46-116); ASPARTATE AMINOTRANSFERASE 3 U/L (15-37); BILIRUBIN,DIRECT 0.2 mg/dL (0.0-0.2); BILIRUBIN,TOTAL 0.5 mg/dL (0.2-1.0); TOTAL PROTEIN, SERUM 7.6 g/dL (6.4-8.2)
[2021-11-14 16:09] LABS: THYROID STIMULATING HORMONE 2.017 uIU/mL (0.358-3.74)
[2021-11-14 16:12] LABS: MAGNESIUM 2.1 mg/dL (1.8-2.4)
--- NOTE | 2021-11-14 17:00 | NUR ---
PT ABLE TO AMPLATE NO WEEKNESS DINESS SOB O2 SAT 93%
[2021-11-14 17:34] VITALS: BP 116/61
--- NOTE | 2021-11-14 17:34 | NUR ---
Patient discharged to home in stable condition. Written and verbal after care instructions given. Patient verbalizes understanding of instruction.
--- NOTE | 2021-11-14 17:34 | NUR ---
IV removed. Catheter intact and site benign. Pressure and 4x4 applied to site. No bleeding noted.
--- NOTE | 2021-11-14 17:35 | NUR ---
Patient discharged to home in stable condition. Written and verbal after care instructions given. Patient verbalizes understanding of instruction.
== END 2021-11-14 17:35 | disposition home or self-care (01) ==
LOC: ER 14:05
DX: R06.09 Other forms of dyspnea (principal); R00.2 Palpitations; I12.0 Hypertensive chronic kidney disease with stage 5 chronic kidney disease or end stage renal disease; E11.22 Type 2 diabetes mellitus with diabetic chronic kidney disease; N18.6 End stage renal disease; Z99.2 Dependence on renal dialysis; Z98.890 Other specified postprocedural states; Z91.018 Allergy to other foods; Z88.6 Allergy status to analgesic agent; Z79.899 Other long term (current) drug therapy; Z79.01 Long term (current) use of anticoagulants
CPT/HCPCS: 36415; 71045-TC; 80048-TC; 80076-TC; 83735-TC; 83880; 84443-TC; 84484-TC; 85025-TC

== ENCOUNTER 2022-06-29 20:05 | Inpatient (IN) | payer MEDICARE, OTHER ==
[~2022-06-29] VITALS: Ht 177.8 cm; Wt 88.5 kg
--- NOTE | 2022-06-29 21:00 | NUR ---
PT IN BED 6 A/O X4, BREATHING IS EVEN AND UNLABORED 97% ON ROOM AIR. C/O: COMING IN FOR CONTINUING COUGHING FITS FOR 2 DAYS. PT ON DIALYSIS, COMPLETED TODAY ACCESS ON L UPPER ARM A/V FISTULA NO FEVER OR TACHYCARDIA NOTED ON ASSESSMENT BP STABLE. LUGS AUSCULTATED AND CLEAR BILATERALLY. IN FOLWERS POSITION BED LOCKED IN LOWEST POSTION.
[2022-06-29 21:27] LABS: BASOPHILS # (AUTO) 0.1 K/uL (0.0-0.2); BASOPHILS % (AUTO) 1.5 % (0.0-2.0); EOSINOPHILS % (AUTO) 4.1 % (0.0-6.0); HEMATOCRIT 34 % (39-51); HEMOGLOBIN 11.3 g/dL (13.5-17.5); LYMPHOCYTES # (AUTO) 0.3 K/uL (0.8-4.8); LYMPHOCYTES % (AUTO) 6.3 % (20.0-44.0); MEAN CORPUSCULAR HGB CONC 33 g/dl (31.0-36.0); MEAN CORPUSCULAR VOLUME 91 fL (80-96); MONOCYTES # (AUTO) 0.9 K/uL (0.1-1.30); NEUTROPHILS # (AUTO) 2.9 K/uL (1.8-8.9); NEUTROPHILS % (AUTO) 67.1 % (43.0-81.0); PLATELET COUNT (AUTO) 151 K/uL (150-450); RED BLOOD CELL COUNT(AUTO) 3.79 MIL/uL (4.5-6.0); WHITE BLOOD COUNT (AUTO) 4.3 K/uL (4.3-11.0)
--- NOTE | 2022-06-29 21:27 | NUR ---
EMT AT BEDSIDE FOR EKG
[2022-06-29 21:37] LABS: CALCIUM, SERUM 9.2 mg/dL (8.5-10.1); CREATININE 5.6 mg/dL (0.6-1.3); POTASSIUM 4.2 mmol/L (3.5-5.1)
[2022-06-29 21:43] LABS: ALBUMIN 3.5 g/dL (3.4-5.0); BILIRUBIN,DIRECT 0.2 mg/dL (0.0-0.2); BILIRUBIN,TOTAL 0.6 mg/dL (0.2-1.0)
[2022-06-29] MEDS ORDERED: AZITHROMYCIN 500 MG in IV D5W 250 ML IV ONE (22:30)
[2022-06-29] MEDS ORDERED: CEFTRIAXONE 1GM BAG (ER ONLY) 1 GM/50 ML PIGGYBACK IV ONE (22:30)
--- NOTE | 2022-06-29 22:35 | NUR ---
COVID SWAB COLLECTED AND SENT TO LAB.
[2022-06-29] MEDS ORDERED: AZITHROMYCIN 500 MG VIAL ONE (22:37)
[2022-06-29] MEDS ORDERED: CEFTRIAXONE 1GM BAG (ER ONLY) 50 ML IV ONE (22:37)
--- NOTE | 2022-06-29 22:59 | NUR ---
PECAN MALLOW DIPPER AT PT'S BEDSIDE
[2022-06-29] MEDS ORDERED: ACETAMINOPHEN 325 MG TABLET PO PRN (23:30)
[2022-06-29] MEDS ORDERED: MAGNESIUM HYDROXIDE 30 ML UDC PO PRN (23:30)
[2022-06-29] MEDS ORDERED: MAG HYDROX/AL HYDROX/SIMETH 30 ML UDC PO PRN (23:30)
[2022-06-29] MEDS ORDERED: Z GUARD REMEDY 4 OZ OINT TP PRN (23:30)
[2022-06-29] MEDS ORDERED: TEMAZEPAM 15 MG CAPSULE PO PRN (23:30)
[2022-06-29] MEDS ORDERED: ONDANSETRON HCL/PF 4 MG/2 ML VIAL IVP PRN (23:30)
[2022-06-29] MEDS ORDERED: DEXTROSE 50%-WATER 50 ML DISP.SYRIN IV PRN (23:30)
--- NOTE | 2022-06-30 00:45 | NUR ---
REPORT GIVEN TO TEVIN JACOBSON FOR CONTINUATION OF CARE.
[2022-06-30 01:10] VITALS: BP 141/60
[2022-06-30 01:19] LABS: BASOPHILS % (MANUAL) 0 % (0.0-2.0); EOSINOPHILS % (MANUAL) 4 % (0-4); LYMPHOCYTES % (MANUAL) 7 % (16-48); MONOCYTES % (MANUAL) 18 % (0-11.0); NEUTROPHILS % (MANUAL) 71 (42-76)
--- NOTE | 2022-06-30 03:30 | NUR ---
CUSTOMS COMPLIANCE DIRECTOR NOTE ADMITTED THIS PATIENT FROM ER @ 0110 WITH DIAGNOSIS OF FACILITY ACQUIRED PNEUMONIA AND ESRD. PATIENT IS AMBULATORY; ALERT AND ORIENTED X 4. ON O2 INHALATION @ 3 LPM VIA NASAL CANNULA; TOLERATING WELL. AFEBRILE. BREATHING EVEN AND UNLABORED. DENIES ANY PAIN OR DISCOMFORT AT THIS TIME. WITH IV ACCESS ON RIGHT FA 20G; PATENT, INTACT AND SALINE LOCKED. ABLE TO MAKE NEEDS KNOWN. VITAL SIGNS FOLLOWS: BP 141/60, HR 73, RR 20, TEMP 98.3, O2 SAT 96%. INVENTORY OF PERSONAL BELONGINGS DONE. REFUSED TO HAVE WHOLE BODY AND SKIN ASSESSMENT. ORIENTED TO STAFF, ROOM AND UNIT. SAFETY PRECAUTIONS IMPLEMENTED: HEAD OF BED ELEVATED, CALL LIGHT AND TABLE WITHIN REACH, SIDE RAILS UP X 2, BED IN LOWEST LOCKED POSITION. WILL CONTINUE TO MONITOR THROUGHOUT SHIFT.
[2022-06-30] MEDS: BLOOD SUGAR DIAGNOSTIC 1 EACH STRIP IN SCH ×4 (06:29→22:54)
[2022-06-30] MEDS: INSULIN REGULAR, HUMAN 100 UNIT/ML 3 ML VIAL SQ PRN ×3 (06:44→22:54)
--- NOTE | 2022-06-30 07:00 | NUR ---
RN CLOSING NOTE PATIENT IN BED; AWAKE, A/O X 4. STILL ON O2 INHALATION @ 3 LPM VIA NASAL CANNULA; WELL TOLERATED. IN NO ACUTE DISTRESS. NO C/O ANY PAIN OR DISCOMFORT AT THIS TIME. WITH IV ACCESS ON RIGHT FA 20G; PATENT, INTACT AND SALINE LOCKED. ALL NEEDS ATTENDED. SAFETY PRECAUTIONS IN PLACE: HEAD OF BED ELEVATED, CALL LIGHT AND TABLE WITHIN REACH, SIDE RAILS UP X 2, BED IN LOWEST LOCKED POSITION. ENDORSED TO MORNING SHIFT FOR JASON.
[2022-06-30 07:24] LABS: BASOPHILS # (AUTO) 0.1 K/uL (0.0-0.2); BASOPHILS % (AUTO) 1.5 % (0.0-2.0); EOSINOPHILS % (AUTO) 2.8 % (0.0-6.0); HEMATOCRIT 33 % (39-51); LYMPHOCYTES # (AUTO) 0.4 K/uL (0.8-4.8); LYMPHOCYTES % (AUTO) 10.3 % (20.0-44.0); MEAN CORPUSCULAR HGB CONC 33 g/dl (31.0-36.0); MEAN CORPUSCULAR VOLUME 89 fL (80-96); MONOCYTES # (AUTO) 0.7 K/uL (0.1-1.30); MONOCYTES % (AUTO) 19.4 % (2.0-12.0); NEUTROPHILS # (AUTO) 2.4 K/uL (1.8-8.9); PLATELET COUNT (AUTO) 146 K/uL (150-450); RED BLOOD CELL COUNT(AUTO) 3.72 MIL/uL (4.5-6.0); WHITE BLOOD COUNT (AUTO) 3.6 K/uL (4.3-11.0)
--- NOTE | 2022-06-30 07:30 | NUR ---
MS ENERGY PROFESSIONAL OPENING NOTE PATIENT RECEIVED RESTING IN BED, A/A/OX4. [address] 3L N/C 02 SAT 95%, NO S/S OF RESPIRATORY DISTRESS NOTED,DENIES PAIN. NON PRODUCTIVE COUGH NOTED. HOB ELEVATED SEMI MALIK POSITION. IV ACCESS RFA#20G WITHOUT S/S OF INFILTRATION NOTED. LEFT UPPER ARM DIALYSIS FISTULA WITH GOOD B/T. BLE EDEMA 2+NOTED. PATIENT IS BRP. SAFETY MEASURES IN PLACE: BED LOCKED TO THE LOWEST POSITION, TABLE AND CALL LIGHT WITHIN REACH. SIDE RAILS UP X2. WILL CONTINUE TO MONITOR.
[2022-06-30 07:36] LABS: CALCIUM, SERUM 9.1 mg/dL (8.5-10.1); CREATININE 6.3 mg/dL (0.6-1.3); PHOSPHORUS 6.9 mg/dL (2.5-4.9); POTASSIUM 4.2 mmol/L (3.5-5.1)
[2022-06-30 07:37] LABS: THYROID STIMULATING HORMONE 1.448 uIU/mL (0.358-3.74)
[2022-06-30] MEDS ORDERED: CALC667C6 PO (09:03)
[2022-06-30] MEDS ORDERED: LORA-259 PO (09:03)
[2022-06-30] MEDS ORDERED: ISOS20TA8 PO (09:03)
[2022-06-30] MEDS ORDERED: CLOP75TA15 PO (09:03)
[2022-06-30] MEDS ORDERED: LOSA50TA39 PO (09:03)
[2022-06-30] MEDS: PANTOPRAZOLE 40 MG TABLET.DR PO SCH (09:10)
--- NOTE | 2022-06-30 10:15 | NUR ---
MS RN NOTE SEEN BY DR. SALCEDO
[2022-06-30 10:16] LABS: BAND % (MANUAL) 1 % (0.0-5.0); EOSINOPHILS % (MANUAL) 2 % (0-4); LYMPHOCYTES % (MANUAL) 5 % (16-48); METAMYELOCYTES % 2 % (0-0); MONOCYTES % (MANUAL) 12 % (0-11.0); MYELOCYTES % 1 % (0-0); NEUTROPHILS % (MANUAL) 77 (42-76)
[2022-06-30] MEDS ORDERED: Medication Not On Formulary EA (Dulaglutide (Trulicity) 0.75 MG) SQ SCH (11:00)
[2022-06-30] MEDS ORDERED: GUAIFENESIN/D-METHORPHAN HB 5 ML UDC PO PRN (11:00)
[2022-06-30] MEDS ORDERED: LORAZEPAM 1 MG TABLET PO PRN (11:00)
[2022-06-30] MEDS: ISOSORBIDE DINITRATE (20MG) 20 MG TABLET PO SCH ×2 (12:26→17:28)
[2022-06-30] MEDS: hydrALAZINE HCL 50 MG TABLET PO SCH ×2 (12:27→17:29)
[2022-06-30] MEDS: CALCIUM ACETATE 667 MG CAP/TAB PO SCH ×2 (12:28→17:23)
[2022-06-30] MEDS: IPRATROPIUM NEB FS 0.5 MG/2.5 ML AMPUL.NEB NEB SCH ×2 (14:20→20:32)
[2022-06-30] MEDS ORDERED: ALBUMIN 25% 25 GM in PREMIX 1 EA IV PRN (17:00)
[2022-06-30] MEDS: NIFEdipine XL (30MG) 30 MG TAB PO SCH (17:30)
[2022-06-30] MEDS: LABETALOL HCL (100MG) 100 MG TABLET PO SCH (17:30)
--- NOTE | 2022-06-30 18:45 | NUR ---
MS RN OPENING NOTE PATIENT IN BED, ALERT AND ORIENTED X 4. WITH OXYGEN AT 2LPM VIA NASAL CANULA, WITH EQUAL AND UNLABORED BREATHING WITH NO SIGNS OF RESPIRATORY DISTRESS NOTED. PATIENT DENIES PAIN AT THIS TIME. NOTED SOME COUGHING BUT IS SIGNIFICANTLY LESS COMPARED TO START OF BREATHING TREATMENT. HOB ELEVATED SEMI MALIK POSITION. WITH IV ACCESS RFA#20G ON SALINE LOCK, PATENT AND INTACT. WITH LEFT UPPER ARM AV FISTULA WITH DRESSING NOTED THRILL/ BRUIT. WITH BLE EDEMA. ENCOURAGED TO RAISE LEGS WHEN IN BED. SAFETY MEASURES IN PLACE: BED LOCKED TO THE LOWEST POSITION, TABLE AND CALL LIGHT WITHIN REACH. SIDE RAILS UP X2. WILL ENDORSE TO NEST SHIFT FOR CONTINUITY OF CARE.
--- NOTE | 2022-06-30 19:25 | NUR ---
DECKER OPERATOR NOTE PATIENT COMPLAIN OF NAUSEAS, MAG-AL PLUS GIVEN DIRECTED. WILL ENDORSE TO THE FOLLOWING NURSE.
--- NOTE | 2022-06-30 19:30 | NUR ---
MS RN OPENING NOTE RECEIVED PATIENT IN BED; AWAKE, ALERT AND ORIENTED X 4. ON O2 INHALATION @ 2 LPM VIA NC; TOLERATING WELL. AFEBRILE. BREATHING EVEN AND NONLABORED. DENIES ANY PAIN OR DISCOMFORT AT THIS TIME. WITH IV ACCESS ON RIGHT FOREARM 20g; PATENT, INTACT AND SL. WITH LEFT UPPER ARM AV FISTULA; DRESSING CLEAN AND INTACT. ABLE TO MAKE NEEDS KNOWN. SAFETY PRECAUTIONS IMPLEMENTED: HEAD OF BED ELEVATED, CALL LIGHT AND TABLE WITHIN REACH, SIDE RAILS UP X 2, BED IN LOWEST LOCKED POSITION. WILL CONTINUE TO MONITOR THROUGHOUT SHIFT.
[2022-06-30 20:00] VITALS: BP 128/60
[2022-06-30] MEDS: CEFTRIAXONE 1 G in IV D5W 50 ML IV SCH (22:42)
[2022-06-30] MEDS: AZITHROMYCIN 500 MG in IV D5W 250 ML IV SCH (23:20)
[2022-07-01] MEDS: IPRATROPIUM NEB FS 0.5 MG/2.5 ML AMPUL.NEB NEB SCH ×4 (01:30→19:58)
[2022-07-01] MEDS: BLOOD SUGAR DIAGNOSTIC 1 EACH STRIP IN SCH ×4 (06:41→21:44)
[2022-07-01] MEDS: INSULIN REGULAR, HUMAN 100 UNIT/ML 3 ML VIAL SQ PRN ×3 (06:42→17:31)
--- NOTE | 2022-07-01 06:50 | NUR ---
RN CLOSING NOTE PATIENT IN BED; AWAKE, A/O X 4. STILL ON O2 INHALATION @ 2 LPM VIA NC; TOLERATING WELL. IN NO ACUTE DISTRESS. NO C/O ANY PAIN OR DISCOMFORT AT THIS TIME. WITH IV ACCESS ON RIGHT FOREARM 20g; PATENT, INTACT AND SL. WITH LEFT UPPER ARM AV FISTULA; DRESSING CLEAN AND INTACT. ALL DUE MEDS GIVEN ORDERED. ALL NEEDS ATTENDED. SAFETY PRECAUTIONS IN PLACE: HEAD OF BED ELEVATED, CALL LIGHT AND TABLE WITHIN REACH, SIDE RAILS UP X 2, BED IN LOWEST LOCKED POSITION. ENDORSED TO MORNING SHIFT FOR JASON.
[2022-07-01 07:07] LABS: BASOPHILS % (AUTO) 1.1 % (0.0-2.0); HEMATOCRIT 32 % (39-51); HEMOGLOBIN 10.6 g/dL (13.5-17.5); LYMPHOCYTES # (AUTO) 0.5 K/uL (0.8-4.8); LYMPHOCYTES % (AUTO) 11.7 % (20.0-44.0); MEAN CORPUSCULAR HGB CONC 34 g/dl (31.0-36.0); MEAN CORPUSCULAR VOLUME 89 fL (80-96); MONOCYTES # (AUTO) 0.7 K/uL (0.1-1.30); MONOCYTES % (AUTO) 16.7 % (2.0-12.0); NEUTROPHILS # (AUTO) 2.6 K/uL (1.8-8.9); NEUTROPHILS % (AUTO) 66.5 % (43.0-81.0); PLATELET COUNT (AUTO) 127 K/uL (150-450); RED BLOOD CELL COUNT(AUTO) 3.55 MIL/uL (4.5-6.0)
[2022-07-01 07:13] LABS: CALCIUM, SERUM 8.8 mg/dL (8.5-10.1); MAGNESIUM 2.1 mg/dL (1.8-2.4); POTASSIUM 5.1 mmol/L (3.5-5.1)
[2022-07-01 07:40] LABS: CREATININE 8.1 mg/dL (0.6-1.3)
[2022-07-01 08:00] VITALS: BP 139/58
[2022-07-01] MEDS: PANTOPRAZOLE 40 MG TABLET.DR PO SCH (08:00)
--- NOTE | 2022-07-01 08:16 | NUR ---
RECEIVED A CRITICAL REPORT. CREATININE 8.[address] SALCEDO WAS MADE AWARE. NO NEW ORDERS.
[2022-07-01] MEDS: NIFEdipine XL (30MG) 30 MG TAB PO SCH ×2 (08:34→16:24)
[2022-07-01] MEDS: CALCIUM ACETATE 667 MG CAP/TAB PO SCH ×3 (08:34→17:28)
[2022-07-01] MEDS: ISOSORBIDE DINITRATE (20MG) 20 MG TABLET PO SCH ×3 (08:34→16:24)
[2022-07-01] MEDS: hydrALAZINE HCL 50 MG TABLET PO SCH ×3 (08:35→16:24)
[2022-07-01] MEDS: LOSARTAN POTASSIUM 50 MG TABLET PO SCH (08:35)
[2022-07-01] MEDS: CLOPIDOGREL BISULFATE 75 MG TABLET PO SCH (08:35)
[2022-07-01] MEDS: LABETALOL HCL (100MG) 100 MG TABLET PO SCH ×2 (08:36→16:24)
--- NOTE | 2022-07-01 15:01 | NUR ---
1300 MEDS HELD. ONGOING HEMODIALYSIS.
[2022-07-01 16:00] VITALS: BP 125/53
--- NOTE | 2022-07-01 18:20 | NUR ---
END OF SHIFT SUMMARY PATIENT IS A/O X4. AMBULATORY. ABLE TO MAKE NEEDS KNOWN. IV ACCESS ON R FA#20 SL. INDEPENDENT WITH REPOSITIONING. FALL PRECAUTIONS MAINTAINED AT ALL TIMES. PATIENT IS TOLERATING DIET WELL. S/P HD, 2L OUT. NICK FISTULA, DRESSING C/D/I. SAFETY MEASURES MAINTAINED. BED IN LOWEST POSITION, BRAKES LOCKED. SIDE RAILS UP X2. CALL LIGHT WITHIN REACH. WILL ENDORSE CONTINUITY OF CARE TO ONCOMING SHIFT.
--- NOTE | 2022-07-01 19:30 | NUR ---
MS RN NOTES RECEIVED LYING ON BED SLEEPING,BREATHING REGULAR,NOT IN ANY FORM OF DISTRESS.A/O X4 PER REPORT.WITH RFA SALINE LOCK INTACT AND PATENT.NICK AV FISTULA FOR HD ACCESS.ANURIC,AMBULATE TO THE RESTROOM FOR #2.CALL LIGHT IN REACH,NEEDS ANTICIPATED.
[2022-07-01 20:00] VITALS: BP 156/62
[2022-07-01] MEDS: CEFTRIAXONE 1 G in IV D5W 50 ML IV SCH (21:47)
--- NOTE | 2022-07-01 22:00 | NUR ---
MS RN NOTES ACCU-CHECK BLOOD SUGAR CHECK 98MG/DL,NO INSULIN COVERAGE.SNACKS PROVIDED AT BEDSIDE.
[2022-07-01] MEDS: AZITHROMYCIN 500 MG in IV D5W 250 ML IV SCH (22:17)
--- NOTE | 2022-07-01 23:18 | NUR ---
MS RN NOTES AWAKE,IV ABX INFUSING WELL ON RIGHT FA.NO SOB NOTED.ENDORSED TO PARMINDER JACOBSON FOR JASON
--- NOTE | 2022-07-01 23:20 | NUR ---
MS RN OPENING NOTES RECEIVED PT AWAKE IN BED WATCHING TV AT THIS TIME. ANTIBIOTIC CURRENTLY INFUSING. BREATHING REGULAR,NOT IN ANY FORM OF DISTRESS.A/O X4 PER REPORT.WITH RFA SALINE LOCK INTACT AND PATENT.NICK AV FISTULA FOR HD ACCESS.ANURIC,AMBULATE TO THE RESTROOM FOR #2.CALL LIGHT IN REACH,NEEDS ANTICIPATED.
[2022-07-02] MEDS: IPRATROPIUM NEB FS 0.5 MG/2.5 ML AMPUL.NEB NEB SCH ×3 (02:38→12:59)
[2022-07-02] MEDS: BLOOD SUGAR DIAGNOSTIC 1 EACH STRIP IN SCH ×2 (06:48→11:54)
[2022-07-02] MEDS: INSULIN REGULAR, HUMAN 100 UNIT/ML 3 ML VIAL SQ PRN (06:48)
[2022-07-02 07:03] LABS: EOSINOPHILS % (AUTO) 10.2 % (0.0-6.0); HEMATOCRIT 34 % (39-51); HEMOGLOBIN 10.9 g/dL (13.5-17.5); LYMPHOCYTES # (AUTO) 0.6 K/uL (0.8-4.8); LYMPHOCYTES % (AUTO) 15.7 % (20.0-44.0); MEAN CORPUSCULAR HGB CONC 32 g/dl (31.0-36.0); MEAN CORPUSCULAR VOLUME 92 fL (80-96); MONOCYTES # (AUTO) 0.6 K/uL (0.1-1.30); NEUTROPHILS # (AUTO) 2.3 K/uL (1.8-8.9); NEUTROPHILS % (AUTO) 58.1 % (43.0-81.0); PLATELET COUNT (AUTO) 131 K/uL (150-450); RED BLOOD CELL COUNT(AUTO) 3.64 MIL/uL (4.5-6.0)
--- NOTE | 2022-07-02 07:05 | NUR ---
MS RN CLOSING NOTES PT RESTING IN BED AT THIS TIME, EASILY AROUSABLE. STABLE ON RA, BREATHING REGULAR,NOT IN ANY FORM OF DISTRESS. A/O X4, ABLE TO MAKE NEEDS KNOWN. RFA SALINE LOCK INTACT AND PATENT. NICK AV FISTULA FOR HD ACCESS. ANURIC, ABLE AMBULATE TO THE RESTROOM FOR #2. ALL CARE PROVIDED AND MEDS TOLERATED WELL. SAFETY PRECAUTIONS MAINTAINED: BED LOCKED AND IN LOW POSITION, SIDE RAILS UP X2, CALL LIGHT AND TRAY TABLE WITHIN REACH. WILL ENDORSE JASON TO DAY SHIFT NURSE.
--- NOTE | 2022-07-02 07:25 | NUR ---
LEAFLET OR NEWSPAPER DELIVERER OPENING NOTE PATIENT WAS RECEIVED AWAKE, SITTING ON BED, A/O X4. NO S/S OF PAIN NOTED AT THIS TIME. ON ROOM AIR, NO S/S OF SOB. OXYGEN VIA NC PRN, NO S/S OF SOB, O2 93%. IV ACCESS RFA G20, INTACT AND PATENT. FALL AND SAFETY PRECAUTIONS IN PLACE: BED AT THE LOWEST POSITION, LOCKED WITH SRX2 AND CALL LIGHT WITHIN REACH.
[2022-07-02 08:06] LABS: CALCIUM, SERUM 9.1 mg/dL (8.5-10.1); CREATININE 6.6 mg/dL (0.6-1.3); MAGNESIUM 2.2 mg/dL (1.8-2.4); PHOSPHORUS 6.5 mg/dL (2.5-4.9)
[2022-07-02] MEDS: CALCIUM ACETATE 667 MG CAP/TAB PO SCH ×2 (08:51→12:26)
[2022-07-02] MEDS: CLOPIDOGREL BISULFATE 75 MG TABLET PO SCH (08:51)
[2022-07-02] MEDS: hydrALAZINE HCL 50 MG TABLET PO SCH ×2 (08:54→12:30)
[2022-07-02] MEDS: LABETALOL HCL (100MG) 100 MG TABLET PO SCH (08:55)
[2022-07-02] MEDS: LOSARTAN POTASSIUM 50 MG TABLET PO SCH (08:55)
[2022-07-02] MEDS: ISOSORBIDE DINITRATE (20MG) 20 MG TABLET PO SCH ×2 (08:55→12:30)
[2022-07-02] MEDS: NIFEdipine XL (30MG) 30 MG TAB PO SCH (08:55)
--- NOTE | 2022-07-02 09:00 | NUR ---
RISA NOTE- NON ADMIN MEDICATION HELD ALL B/P MEDICATION. PATIENT HAD HEMODIALYSIS PROCEDURE SCHEDULED TODAY. B/P 135/48. Addendum: 07/02/22 at 1040 by JOEY ROWLAND LVN ADD-VERIFIED WITH DIALYSIS NURSE TO HOLD B/P MEDICATIONS
[2022-07-02] MEDS: PANTOPRAZOLE 40 MG TABLET.DR PO SCH (10:03)
[2022-07-02] MEDS ORDERED: AZIT500T PO (11:59)
--- NOTE | 2022-07-02 13:50 | NUR ---
ASSURANCE ENGINEER Discharge NOTE PATIENT DISCHARGED IN A STABLE MEDICAL CONDITION. A/OX4. IV ACCESS REMOVED, CATHETER TIP INTACT, PRESSURE DRESSING APPLIED. NO S/S OF PAIN NOTED AT THIS TIME. ON ROOM AIR, NO S/S OF SOB. SKIN ASSESSMENT WAS REFUSED. ALL BELONGING WERE CHECKED AND BELONGING LIST WAS SIGNED.NAME BAND REMOVED. HEALTH TEACHING AND DISCHARGED INSTRUCTION WERE PROVIDED AND PATIENT VERBALIZED UNDERSTANDING. PATIENT LEFT VIA WHEELCHAIR ACCOMPANIED BY MAINTAINABILITY ENGINEER AND FAMILY/ FRIEND TO LOBBY. CHARGE NURSE WAS NOTIFIED.
== END 2022-07-02 13:45 | disposition home or self-care (01) | DRG 193 ==
LOC: ER 20:09 → TELE 23:45 → MED 06-30 02:17
PROVIDERS: ADMIT Nurse Practitioner Acute Care; ATTEND Student in an Organized Health Care Education/Training Program
PROC: 5A1D70Z Performance of Urinary Filtration, Intermittent, Less than 6 Hours Per Day (ICD-10-PCS; principal; 2022-06-30)
DX: J15.9 Unspecified bacterial pneumonia (principal); N18.6 End stage renal disease; I13.2 Hypertensive heart and chronic kidney disease with heart failure and with stage 5 chronic kidney disease, or end stage renal disease; I50.30 Unspecified diastolic (congestive) heart failure; E87.1 Hypo-osmolality and hyponatremia; D61.818 Other pancytopenia; Z20.822 Contact with and (suspected) exposure to COVID-19; E11.22 Type 2 diabetes mellitus with diabetic chronic kidney disease; Z98.890 Other specified postprocedural states; Z88.5 Allergy status to narcotic agent; Z91.012 Allergy to eggs; Z79.01 Long term (current) use of anticoagulants; Z79.899 Other long term (current) drug therapy; I25.10 Atherosclerotic heart disease of native coronary artery without angina pectoris; Z95.5 Presence of coronary angioplasty implant and graft; Z99.2 Dependence on renal dialysis; I48.0 Paroxysmal atrial fibrillation; D63.8 Anemia in other chronic diseases classified elsewhere; R60.9 Edema, unspecified; M89.8X9 Other specified disorders of bone, unspecified site; E78.5 Hyperlipidemia, unspecified
CPT/HCPCS: 36415; 71045-TC; 80048-TC; 80061-TC; 80076-TC; 82962-TC; 83605-TC; 83690-TC; 83735-TC; 83880; 84100-TC; 84443-TC; 84484-TC; 85025-TC; 85730-TC; 87040-TC; 87081-TC; 90935-TC; 93970-TC; 94799-TC; A4216; A4223; C9803; G0378; J0456; J0696; J1815; J7030; J7050; J7060; P9047

== ENCOUNTER 2023-01-08 00:40 | Inpatient (IN) | payer MEDICARE, OTHER ==
[~2023-01-08] VITALS: Ht 177.8 cm; Wt 103.4 kg
[~2023-01-08 00:40] MED LIST changes: -APIX5TAB PO; +AZIT500T PO; +CALC667C6 PO; +CLOP75TA15 PO; +ISOS20TA8 PO; -ISOS30TA86 PO; +LORA-259 PO; +LOSA50TA39 PO
[2023-01-08 03:25] VITALS: BP 137/68; TEMP 97.9; O2SAT 95
[2023-01-08] MEDS ORDERED: ZOLPIDEM TARTRATE 5 MG TABLET PO PRN (04:00)
[2023-01-08] MEDS ORDERED: MAGNESIUM HYDROXIDE 30 ML UDC PO PRN (04:00)
[2023-01-08] MEDS ORDERED: Z GUARD REMEDY 4 OZ OINT TP PRN (04:00)
[2023-01-08] MEDS ORDERED: CEFTRIAXONE 1 G in IV D5W 50 ML IV SCH (04:00)
[2023-01-08] MEDS ORDERED: MAG HYDROX/AL HYDROX/SIMETH 30 ML UDC PO PRN (04:00)
[2023-01-08] MEDS ORDERED: IV NS 0.9% 1,000 ML IV PRN (04:00)
[2023-01-08] MEDS: MORPHINE SULFATE INJ 2 MG/ML DISP.SYRIN IV PRN ×2 (04:03→12:40)
[2023-01-08] MEDS ORDERED: DEXTROSE 50%-WATER 50 ML DISP.SYRIN IV PRN (04:30)
[2023-01-08] MEDS ORDERED: VANCOMYCIN 1.5 GM in IV D5W 500ml IV ONE (04:30)
[2023-01-08] MEDS ORDERED: CEFTRIAXONE 1GM BAG (ER ONLY) 50 ML IV ONE (04:47)
[2023-01-08] MEDS ORDERED: ISOS60TA72 PO (04:59)
[2023-01-08] MEDS ORDERED: ASPI-866 PO (04:59)
[2023-01-08] MEDS ORDERED: CLON1PAT13 TD (04:59)
[2023-01-08] MEDS ORDERED: FURO80TA3 PO (04:59)
[2023-01-08] MEDS ORDERED: METO-357 PO (04:59)
[2023-01-08] MEDS ORDERED: DULA0.75 SQ (04:59)
[2023-01-08] MEDS ORDERED: HYDR100T27 PO (04:59)
[2023-01-08] MEDS ORDERED: CALC667T8 PO (04:59)
[2023-01-08] MEDS ORDERED: ATOR40TA PO (04:59)
[2023-01-08] MEDS ORDERED: APIX5TAB PO (04:59)
[2023-01-08] MEDS ORDERED: B-CO1TAB PO (04:59)
[2023-01-08] MEDS ORDERED: MORPHINE SULFATE INJ 2 MG/ML DISP.SYRIN IV ONE (05:00)
[2023-01-08] MEDS: ONDANSETRON HCL/PF 4 MG/2 ML VIAL IVP PRN (05:27)
[2023-01-08 07:02] LABS: BASOPHILS # (AUTO) 0.1 K/uL (0.0-0.2); BASOPHILS % (AUTO) 0.4 % (0.0-2.0); EOSINOPHILS % (AUTO) 0.1 % (0.0-6.0); HEMATOCRIT 28 % (39-51); HEMOGLOBIN 9.2 g/dL (13.5-17.5); LYMPHOCYTES # (AUTO) 0.4 K/uL (0.8-4.8); MEAN CORPUSCULAR HEMOGLOBIN 30 PG (26.0-33.0); MEAN CORPUSCULAR HGB CONC 33 g/dl (31.0-36.0); MEAN CORPUSCULAR VOLUME 90 fL (80-96); MONOCYTES # (AUTO) 1.7 K/uL (0.1-1.30); MONOCYTES % (AUTO) 9.6 % (2.0-12.0); NEUTROPHILS # (AUTO) 15.8 K/uL (1.8-8.9); NEUTROPHILS % (AUTO) 87.9 % (43.0-81.0); PLATELET COUNT (AUTO) 146 K/uL (150-450); RED BLOOD CELL COUNT(AUTO) 3.12 MIL/uL (4.5-6.0); RED CELL DISTRIBUTION WIDTH 16.6 % (11.5-15.0)
[2023-01-08] MEDS: BLOOD SUGAR DIAGNOSTIC 1 EACH STRIP VI SCH ×4 (07:03→21:28)
[2023-01-08] MEDS: INSULIN REGULAR, HUMAN 100 UNIT/ML 3 ML VIAL SQ PRN ×4 (07:04→21:25)
[2023-01-08 07:28] LABS: CALCIUM, SERUM 9.1 mg/dL (8.5-10.1); CARBON DIOXIDE 25 mmol/L (21-32); CHLORIDE 92 mmol/L (98-107); GLUCOSE 122 mg/dL (74-106); POTASSIUM 4.1 mmol/L (3.5-5.1); SODIUM SERUM 131 mmol/L (136-145); UREA NITROGEN, BLOOD 48 mg/dL (7-18)
[2023-01-08 08:00] VITALS: BP 138/58; TEMP 99; O2SAT 96
[2023-01-08 08:14] LABS: CREATININE 7.8 mg/dL (0.6-1.3)
[2023-01-08] MEDS: *INSULIN REGULAR(HUMULIN R)HUM 100 UNIT/ML VIAL SQ PRN (11:48)
[2023-01-08 16:00] VITALS: BP 156/60; TEMP 98.6; O2SAT 95
[2023-01-08 16:28] LABS: FREE PSA < 0.06 ng/mL (0.00-45)
[2023-01-08 16:36] LABS: PROSTATE SPECIFIC ANTIGEN SCR < 0.13 ng/mL (0.00-4.00)
[2023-01-08 20:00] VITALS: BP 156/58; TEMP 99; O2SAT 94
[2023-01-08] MEDS: CEFEPIME 1 GM in IV D5W 50 ML IV SCH (21:09)
[2023-01-09] MEDS: BLOOD SUGAR DIAGNOSTIC 1 EACH STRIP VI SCH ×4 (06:39→22:00)
[2023-01-09 06:50] LABS: BASOPHILS # (AUTO) 0.1 K/uL (0.0-0.2); BASOPHILS % (AUTO) 0.5 % (0.0-2.0); EOSINOPHILS % (AUTO) 0.3 % (0.0-6.0); HEMATOCRIT 28 % (39-51); HEMOGLOBIN 9.2 g/dL (13.5-17.5); LYMPHOCYTES # (AUTO) 0.3 K/uL (0.8-4.8); LYMPHOCYTES % (AUTO) 1.6 % (20.0-44.0); MEAN CORPUSCULAR HEMOGLOBIN 30 PG (26.0-33.0); MEAN CORPUSCULAR HGB CONC 33 g/dl (31.0-36.0); MEAN CORPUSCULAR VOLUME 90 fL (80-96); MONOCYTES # (AUTO) 1.3 K/uL (0.1-1.30); MONOCYTES % (AUTO) 7.7 % (2.0-12.0); NEUTROPHILS # (AUTO) 15.3 K/uL (1.8-8.9); NEUTROPHILS % (AUTO) 89.9 % (43.0-81.0); PLATELET COUNT (AUTO) 157 K/uL (150-450); RED BLOOD CELL COUNT(AUTO) 3.12 MIL/uL (4.5-6.0); RED CELL DISTRIBUTION WIDTH 16.8 % (11.5-15.0)
[2023-01-09 07:18] LABS: CALCIUM, SERUM 9.4 mg/dL (8.5-10.1); CARBON DIOXIDE 25 mmol/L (21-32); CHLORIDE 96 mmol/L (98-107); GLUCOSE 116 mg/dL (74-106); PHOSPHORUS 4.6 mg/dL (2.5-4.9); POTASSIUM 4.3 mmol/L (3.5-5.1); SODIUM SERUM 132 mmol/L (136-145); UREA NITROGEN, BLOOD 39 mg/dL (7-18)
[2023-01-09 07:30] VITALS: BP 156/56; TEMP 100.4; O2SAT 95
[2023-01-09] MEDS ORDERED: ISOS60TA72 PO (07:59)
[2023-01-09] MEDS ORDERED: BLOO-668 IN (07:59)
[2023-01-09] MEDS ORDERED: NIFE60TA83 PO (07:59)
[2023-01-09] MEDS ORDERED: LABE100T5 PO (07:59)
[2023-01-09] MEDS ORDERED: NALO4SPR NS (07:59)
[2023-01-09] MEDS ORDERED: HYDR-4303 PO (07:59)
[2023-01-09] MEDS ORDERED: ACET-2605 PO (07:59)
[2023-01-09] MEDS ORDERED: NITR0.4T48 SL (07:59)
[2023-01-09 08:06] LABS: HEPATITIS B SURFACE AB Non Reactive (.)
[2023-01-09] MEDS: MORPHINE SULFATE INJ 2 MG/ML DISP.SYRIN IV PRN ×2 (08:47→15:59)
[2023-01-09] MEDS ORDERED: VANCOMYCIN 500 MG in IV D5W 100 ML IV PRN (09:00)
[2023-01-09] MEDS ORDERED: LIDOCAINE 0.5% HCL 50 ML VIAL IJ ONE (09:00)
[2023-01-09] MEDS: KETOROLAC TROMETHAMINE INJ 30 MG/ML VIAL IV SCH ×3 (09:00→21:18)
[2023-01-09] MEDS: INSULIN REGULAR, HUMAN 100 UNIT/ML 3 ML VIAL SQ PRN ×2 (12:16→16:55)
[2023-01-09] MEDS: CALCIUM ACETATE 667 MG CAP/TAB PO SCH ×2 (13:19→17:04)
[2023-01-09] MEDS: ISOSORBIDE MONONITRATE 20 MG TABLET PO SCH ×2 (13:30→17:04)
[2023-01-09 16:00] VITALS: BP 125/61; TEMP 98.8; O2SAT 94
[2023-01-09] MEDS: LABETALOL HCL (100MG) 100 MG TABLET PO SCH (17:05)
[2023-01-09] MEDS: ATORVASTATIN 40 MG TABLET PO SCH (17:05)
[2023-01-09 20:00] VITALS: BP 125/54; TEMP 98.2; O2SAT 96
[2023-01-09] MEDS: CEFEPIME 1 GM in IV D5W 50 ML IV SCH (21:14)
[2023-01-10] MEDS: KETOROLAC TROMETHAMINE INJ 30 MG/ML VIAL IV SCH (03:14)
[2023-01-10] MEDS: BLOOD SUGAR DIAGNOSTIC 1 EACH STRIP VI SCH ×4 (06:32→21:22)
[2023-01-10 06:35] LABS: BASOPHILS # (AUTO) 0.1 K/uL (0.0-0.2); BASOPHILS % (AUTO) 0.6 % (0.0-2.0); EOSINOPHILS # (AUTO) 0.2 K/uL (0.0-0.7); EOSINOPHILS % (AUTO) 1.3 % (0.0-6.0); HEMATOCRIT 26 % (39-51); HEMOGLOBIN 8.6 g/dL (13.5-17.5); LYMPHOCYTES # (AUTO) 0.3 K/uL (0.8-4.8); LYMPHOCYTES % (AUTO) 2.1 % (20.0-44.0); MEAN CORPUSCULAR HEMOGLOBIN 30 PG (26.0-33.0); MEAN CORPUSCULAR HGB CONC 33 g/dl (31.0-36.0); MEAN CORPUSCULAR VOLUME 91 fL (80-96); MONOCYTES # (AUTO) 1.1 K/uL (0.1-1.30); MONOCYTES % (AUTO) 6.5 % (2.0-12.0); NEUTROPHILS # (AUTO) 14.5 K/uL (1.8-8.9); NEUTROPHILS % (AUTO) 89.5 % (43.0-81.0); PLATELET COUNT (AUTO) 166 K/uL (150-450); RED CELL DISTRIBUTION WIDTH 17.1 % (11.5-15.0); WHITE BLOOD COUNT (AUTO) 16.2 K/uL (4.3-11.0)
[2023-01-10 06:56] LABS: CALCIUM, SERUM 9.7 mg/dL (8.5-10.1); CARBON DIOXIDE 24 mmol/L (21-32); CHLORIDE 94 mmol/L (98-107); GLUCOSE 113 mg/dL (74-106); MAGNESIUM 2.2 mg/dL (1.8-2.4); POTASSIUM 4.6 mmol/L (3.5-5.1); SODIUM SERUM 130 mmol/L (136-145); UREA NITROGEN, BLOOD 53 mg/dL (7-18); VANCOMYCIN,TROUGH 15 ug/ml (10-20)
[2023-01-10 06:58] LABS: CREATININE 7.8 mg/dL (0.6-1.3)
[2023-01-10 07:30] VITALS: BP 135/59; TEMP 97.5; O2SAT 98
[2023-01-10] MEDS: ISOSORBIDE MONONITRATE 20 MG TABLET PO SCH ×3 (08:11→17:29)
[2023-01-10] MEDS: VITAMIN B COMP W-C 1 TAB TABLET PO SCH (08:11)
[2023-01-10] MEDS: ASPIRIN EC 81 MG TABLET.DR PO SCH (08:11)
[2023-01-10] MEDS: CALCIUM ACETATE 667 MG CAP/TAB PO SCH ×3 (08:11→17:30)
[2023-01-10] MEDS: LABETALOL HCL (100MG) 100 MG TABLET PO SCH ×2 (08:12→17:30)
[2023-01-10] MEDS: INSULIN REGULAR, HUMAN 100 UNIT/ML 3 ML VIAL SQ PRN ×3 (12:14→21:23)
[2023-01-10 16:00] VITALS: BP 151/66; TEMP 97.3; O2SAT 99
[2023-01-10] MEDS: ATORVASTATIN 40 MG TABLET PO SCH (17:29)
[2023-01-10 20:00] VITALS: BP 143/60; TEMP 98.1; O2SAT 99
[2023-01-10] MEDS: CEFEPIME 1 GM in IV D5W 50 ML IV SCH (20:40)
[2023-01-10] MEDS: MORPHINE SULFATE INJ 2 MG/ML DISP.SYRIN IV PRN (21:03)
[2023-01-11] MEDS: BLOOD SUGAR DIAGNOSTIC 1 EACH STRIP VI SCH ×4 (06:34→22:02)
[2023-01-11] MEDS: INSULIN REGULAR, HUMAN 100 UNIT/ML 3 ML VIAL SQ PRN ×3 (06:35→17:49)
[2023-01-11 07:00] VITALS: BP 156/60; TEMP 97.5; O2SAT 96
[2023-01-11 07:08] LABS: BASOPHILS % (AUTO) 0.2 % (0.0-2.0); EOSINOPHILS # (AUTO) 0.4 K/uL (0.0-0.7); EOSINOPHILS % (AUTO) 3.5 % (0.0-6.0); HEMATOCRIT 25 % (39-51); HEMOGLOBIN 8.3 g/dL (13.5-17.5); LYMPHOCYTES # (AUTO) 0.4 K/uL (0.8-4.8); MEAN CORPUSCULAR HEMOGLOBIN 29 PG (26.0-33.0); MEAN CORPUSCULAR HGB CONC 33 g/dl (31.0-36.0); MEAN CORPUSCULAR VOLUME 90 fL (80-96); MONOCYTES % (AUTO) 8.2 % (2.0-12.0); NEUTROPHILS # (AUTO) 10.5 K/uL (1.8-8.9); NEUTROPHILS % (AUTO) 85.1 % (43.0-81.0); PLATELET COUNT (AUTO) 169 K/uL (150-450); RED CELL DISTRIBUTION WIDTH 17.1 % (11.5-15.0); WHITE BLOOD COUNT (AUTO) 12.3 K/uL (4.3-11.0)
[2023-01-11 07:40] LABS: CALCIUM, SERUM 9.3 mg/dL (8.5-10.1); CARBON DIOXIDE 26 mmol/L (21-32); CHLORIDE 98 mmol/L (98-107); CREATININE 5.7 mg/dL (0.6-1.3); GLUCOSE 123 mg/dL (74-106); PHOSPHORUS 3.5 mg/dL (2.5-4.9); POTASSIUM 4.4 mmol/L (3.5-5.1); SODIUM SERUM 133 mmol/L (136-145); UREA NITROGEN, BLOOD 42 mg/dL (7-18)
[2023-01-11] MEDS: CALCIUM ACETATE 667 MG CAP/TAB PO SCH ×3 (08:22→17:40)
[2023-01-11] MEDS: LABETALOL HCL (100MG) 100 MG TABLET PO SCH ×2 (08:23→17:40)
[2023-01-11] MEDS: ISOSORBIDE MONONITRATE 20 MG TABLET PO SCH ×3 (08:24→17:39)
[2023-01-11] MEDS: VITAMIN B COMP W-C 1 TAB TABLET PO SCH (08:25)
[2023-01-11] MEDS: ASPIRIN EC 81 MG TABLET.DR PO SCH (08:26)
[2023-01-11 16:00] VITALS: BP 138/56; TEMP 98.2
[2023-01-11] MEDS: ATORVASTATIN 40 MG TABLET PO SCH (18:24)
[2023-01-11 20:00] VITALS: BP 153/60; TEMP 97.9; O2SAT 100
[2023-01-11] MEDS: CEFEPIME 1 GM in IV D5W 50 ML IV SCH (20:35)
[2023-01-11] MEDS: *INSULIN REGULAR(HUMULIN R)HUM 100 UNIT/ML VIAL SQ PRN (22:06)
[2023-01-12] MEDS: BLOOD SUGAR DIAGNOSTIC 1 EACH STRIP VI SCH ×4 (06:39→21:48)
[2023-01-12 06:42] LABS: BASOPHILS % (AUTO) 0.5 % (0.0-2.0); EOSINOPHILS # (AUTO) 0.6 K/uL (0.0-0.7); EOSINOPHILS % (AUTO) 6.1 % (0.0-6.0); HEMATOCRIT 25 % (39-51); HEMOGLOBIN 8.3 g/dL (13.5-17.5); LYMPHOCYTES # (AUTO) 0.5 K/uL (0.8-4.8); MEAN CORPUSCULAR HEMOGLOBIN 30 PG (26.0-33.0); MEAN CORPUSCULAR HGB CONC 34 g/dl (31.0-36.0); MEAN CORPUSCULAR VOLUME 90 fL (80-96); MONOCYTES # (AUTO) 0.8 K/uL (0.1-1.30); MONOCYTES % (AUTO) 8.6 % (2.0-12.0); NEUTROPHILS # (AUTO) 7.5 K/uL (1.8-8.9); NEUTROPHILS % (AUTO) 79.8 % (43.0-81.0); PLATELET COUNT (AUTO) 178 K/uL (150-450); RED BLOOD CELL COUNT(AUTO) 2.74 MIL/uL (4.5-6.0); RED CELL DISTRIBUTION WIDTH 16.8 % (11.5-15.0); WHITE BLOOD COUNT (AUTO) 9.4 K/uL (4.3-11.0)
[2023-01-12 07:00] VITALS: BP 175/62; TEMP 97.2; O2SAT 97
[2023-01-12 07:05] LABS: CALCIUM, SERUM 9.2 mg/dL (8.5-10.1); CARBON DIOXIDE 24 mmol/L (21-32); CHLORIDE 97 mmol/L (98-107); CREATININE 7.2 mg/dL (0.6-1.3); GLUCOSE 117 mg/dL (74-106); MAGNESIUM 2.2 mg/dL (1.8-2.4); PHOSPHORUS 3.6 mg/dL (2.5-4.9); POTASSIUM 4.7 mmol/L (3.5-5.1); SODIUM SERUM 132 mmol/L (136-145); UREA NITROGEN, BLOOD 53 mg/dL (7-18)
[2023-01-12] MEDS: CALCIUM ACETATE 667 MG CAP/TAB PO SCH ×3 (09:04→18:12)
[2023-01-12] MEDS: VITAMIN B COMP W-C 1 TAB TABLET PO SCH (09:04)
[2023-01-12] MEDS: ASPIRIN EC 81 MG TABLET.DR PO SCH (09:04)
[2023-01-12] MEDS: LABETALOL HCL (100MG) 100 MG TABLET PO SCH ×2 (09:05→18:13)
[2023-01-12] MEDS: ISOSORBIDE MONONITRATE 20 MG TABLET PO SCH ×3 (09:05→18:12)
[2023-01-12] MEDS: TRAMADOL HCL 50 MG TABLET PO PRN ×2 (10:26→18:34)
[2023-01-12] MEDS ORDERED: VANCOMYCIN 1 GM in IV D5W 250ml IV ONE (17:00)
[2023-01-12] MEDS: ATORVASTATIN 40 MG TABLET PO SCH (18:13)
[2023-01-12 20:00] VITALS: BP 173/68; TEMP 98.2; O2SAT 100
[2023-01-12] MEDS: CEFEPIME 1 GM in IV D5W 50 ML IV SCH (20:03)
[2023-01-12] MEDS: ACETAMINOPHEN 325 MG TABLET PO PRN (21:37)
[2023-01-12] MEDS: hydrALAZINE HCL IV 20 MG VIAL IV PRN (21:37)
[2023-01-13] MEDS: TRAMADOL HCL 50 MG TABLET PO PRN (02:42)
[2023-01-13] MEDS: BLOOD SUGAR DIAGNOSTIC 1 EACH STRIP VI SCH ×4 (06:28→22:12)
[2023-01-13 07:21] LABS: CALCIUM, SERUM 9.2 mg/dL (8.5-10.1); CARBON DIOXIDE 30 mmol/L (21-32); CHLORIDE 97 mmol/L (98-107); CREATININE 5.8 mg/dL (0.6-1.3); GLUCOSE 116 mg/dL (74-106); SODIUM SERUM 136 mmol/L (136-145); UREA NITROGEN, BLOOD 40 mg/dL (7-18)
[2023-01-13 08:00] VITALS: BP 184/74; TEMP 97.6; O2SAT 98
[2023-01-13] MEDS: VITAMIN B COMP W-C 1 TAB TABLET PO SCH (09:02)
[2023-01-13] MEDS: CALCIUM ACETATE 667 MG CAP/TAB PO SCH ×3 (09:02→17:00)
[2023-01-13] MEDS: ISOSORBIDE MONONITRATE 20 MG TABLET PO SCH ×3 (09:02→17:00)
[2023-01-13] MEDS: ASPIRIN EC 81 MG TABLET.DR PO SCH (09:03)
[2023-01-13] MEDS: LABETALOL HCL (100MG) 100 MG TABLET PO SCH ×2 (09:03→17:00)
[2023-01-13] MEDS: ACETAMINOPHEN 325 MG TABLET PO PRN ×2 (09:05→20:07)
[2023-01-13] MEDS: INSULIN REGULAR, HUMAN 100 UNIT/ML 3 ML VIAL SQ PRN (11:35)
[2023-01-13 16:00] VITALS: BP 175/69; TEMP 97.7; O2SAT 98
[2023-01-13] MEDS: ONDANSETRON HCL/PF 4 MG/2 ML VIAL IVP PRN (17:26)
[2023-01-13] MEDS: hydrALAZINE HCL IV 20 MG VIAL IV PRN (17:26)
[2023-01-13] MEDS: ATORVASTATIN 40 MG TABLET PO SCH (17:27)
[2023-01-13 20:00] VITALS: BP_SYST 120; BP_SYST 181; BP_DIAS 63; BP_DIAS 77; TEMP 97.6; TEMP 98.3; O2SAT 98; O2SAT 99
[2023-01-13] MEDS: CEFEPIME 1 GM in IV D5W 50 ML IV SCH (20:07)
[2023-01-14] MEDS: BLOOD SUGAR DIAGNOSTIC 1 EACH STRIP VI SCH ×4 (06:31→22:05)
[2023-01-14 06:57] LABS: CALCIUM, SERUM 9.4 mg/dL (8.5-10.1); CARBON DIOXIDE 27 mmol/L (21-32); CHLORIDE 99 mmol/L (98-107); CREATININE 7.2 mg/dL (0.6-1.3); GLUCOSE 88 mg/dL (74-106); POTASSIUM 4.6 mmol/L (3.5-5.1); SODIUM SERUM 137 mmol/L (136-145); UREA NITROGEN, BLOOD 47 mg/dL (7-18); VANCOMYCIN,RANDOM 17 ug/mL (20-30)
[2023-01-14 07:00] VITALS: BP 180/70; TEMP 97.6; O2SAT 98
[2023-01-14] MEDS: ISOSORBIDE MONONITRATE 20 MG TABLET PO SCH ×3 (08:58→17:38)
[2023-01-14] MEDS: VITAMIN B COMP W-C 1 TAB TABLET PO SCH (08:59)
[2023-01-14] MEDS: ASPIRIN EC 81 MG TABLET.DR PO SCH (08:59)
[2023-01-14] MEDS: CALCIUM ACETATE 667 MG CAP/TAB PO SCH ×3 (08:59→17:38)
[2023-01-14] MEDS: LABETALOL HCL (100MG) 100 MG TABLET PO SCH ×2 (08:59→17:38)
[2023-01-14] MEDS: TRAMADOL HCL 50 MG TABLET PO PRN (10:01)
[2023-01-14] MEDS: hydrALAZINE HCL IV 20 MG VIAL IV PRN (10:38)
[2023-01-14] MEDS: NIFEdipine XL (30MG) 30 MG TAB PO SCH ×2 (12:06→21:03)
[2023-01-14] MEDS ORDERED: TRAM50TA2 PO (13:16)
[2023-01-14] MEDS ORDERED: AMOX-427 PO (13:16)
[2023-01-14 16:00] VITALS: BP 156/62; TEMP 97.5; O2SAT 100
[2023-01-14] MEDS: ATORVASTATIN 40 MG TABLET PO SCH (17:37)
[2023-01-14] MEDS: CEFEPIME 1 GM in IV D5W 50 ML IV SCH (20:27)
[2023-01-14 21:21] VITALS: BP 133/52; TEMP 97.5; O2SAT 97
[2023-01-15] MEDS: TRAMADOL HCL 50 MG TABLET PO PRN ×2 (04:58→12:23)
[2023-01-15 07:29] LABS: CALCIUM, SERUM 9.5 mg/dL (8.5-10.1); CARBON DIOXIDE 25 mmol/L (21-32); CHLORIDE 100 mmol/L (98-107); CREATININE 5.8 mg/dL (0.6-1.3); GLUCOSE 112 mg/dL (74-106); POTASSIUM 4.1 mmol/L (3.5-5.1); SODIUM SERUM 135 mmol/L (136-145); UREA NITROGEN, BLOOD 37 mg/dL (7-18)
[2023-01-15] MEDS: BLOOD SUGAR DIAGNOSTIC 1 EACH STRIP VI SCH ×3 (08:03→17:19)
[2023-01-15] MEDS: ISOSORBIDE MONONITRATE 20 MG TABLET PO SCH ×3 (09:09→17:09)
[2023-01-15] MEDS: NIFEdipine XL (30MG) 30 MG TAB PO SCH (09:09)
[2023-01-15] MEDS: VITAMIN B COMP W-C 1 TAB TABLET PO SCH (09:10)
[2023-01-15] MEDS: LABETALOL HCL (100MG) 100 MG TABLET PO SCH ×2 (09:10→17:10)
[2023-01-15] MEDS: ASPIRIN EC 81 MG TABLET.DR PO SCH (09:10)
[2023-01-15] MEDS: CALCIUM ACETATE 667 MG CAP/TAB PO SCH ×3 (09:10→17:10)
[2023-01-15] MEDS ORDERED: VANC500F2 IV (11:47)
[2023-01-15 16:00] VITALS: BP 141/61; TEMP 98.8; O2SAT 100
[2023-01-15] MEDS: ATORVASTATIN 40 MG TABLET PO SCH (17:09)
[2023-01-15 17:10] VITALS: BP 141/61
== END 2023-01-15 18:21 | disposition home or self-care (01) | DRG 727 ==
LOC: MED 03:19
PROVIDERS: ADMIT Internal Medicine; ATTEND Nurse Practitioner Family
PROC: 5A1D70Z Performance of Urinary Filtration, Intermittent, Less than 6 Hours Per Day (ICD-10-PCS; principal; 2023-01-08)
PROC: 0H9AXZZ Drainage of Inguinal Skin, External Approach (ICD-10-PCS; 2023-01-09)
DX: N49.2 Inflammatory disorders of scrotum (principal); N18.6 End stage renal disease; L03.315 Cellulitis of perineum; I50.32 Chronic diastolic (congestive) heart failure; I13.2 Hypertensive heart and chronic kidney disease with heart failure and with stage 5 chronic kidney disease, or end stage renal disease; I25.10 Atherosclerotic heart disease of native coronary artery without angina pectoris; E78.5 Hyperlipidemia, unspecified; E11.22 Type 2 diabetes mellitus with diabetic chronic kidney disease; Z79.85 Long-term (current) use of injectable non-insulin antidiabetic drugs; Z79.899 Other long term (current) drug therapy; Z79.01 Long term (current) use of anticoagulants; Z79.82 Long term (current) use of aspirin; Z79.02 Long term (current) use of antithrombotics/antiplatelets; D63.1 Anemia in chronic kidney disease; Z99.2 Dependence on renal dialysis; Z95.5 Presence of coronary angioplasty implant and graft; I48.0 Paroxysmal atrial fibrillation; N25.0 Renal osteodystrophy; Z85.46 Personal history of malignant neoplasm of prostate; Z90.79 Acquired absence of other genital organ(s); Z91.012 Allergy to eggs; Z88.5 Allergy status to narcotic agent
CPT/HCPCS: 36415; 72192-TC; 76870-TC; 80048-TC; 80202-TC; 82962-TC; 83735-TC; 84100-TC; 84153-TC; 84154-TC; 85025-TC; 86706; 87081-TC; 87340; 90935-TC; A4223; A6403; G0378; J0360; J0692; J0696; J1815; J1885; J2270; J2405; J3370; J3490; J7030; J7050; J7060